=== PATIENT | male | born 1950 | race Caucasian/White ===

== ENCOUNTER 2020-05-07 14:20 | Inpatient (IN) | payer MEDICARE ==
[~2020-05-07] VITALS: Ht 175.3 cm; Wt 87.1 kg
[~2020-05-07 14:20] MED LIST: ETOMIDATE 2 MG/ML 10 ML INJ IV ONE; MIDAZOLAM HCL 2 MG/2 ML VIAL ONE; SUCCINYLCHOLINE CHLORIDE 20 MG/ML 10ML VIAL ONE; VECURONIUM BROMIDE FOR INJ 20 MG VIAL ONE; WATER STERILE 10 ML VIAL ONE
[2020-05-07] MEDS ORDERED: DEXAMETHASONE SOD PHOS 10 MG/1 ML VIAL IV ONE (14:45)
[2020-05-07 15:08] LABS: BASOPHILS % 0.3 % (0.0-1.0); EOSINOPHILS # (AUTO) 0.1 (0.0-0.4); EOSINOPHILS % 1.8 % (0.0-6.0); HEMATOCRIT 28.9 % (38.2-49.6); HEMOGLOBIN 9.8 g/dL (14.0-18.0); LYMPHOCYTES # (AUTO) 0.4 (1.0-3.2); LYMPHOCYTES % 5.4 % (18.0-39.1); MEAN CORPUSCULAR HEMOGLOBIN 31.4 pg (28-32); MEAN CORPUSCULAR HGB CONC 33.9 g/dL (31-35); MEAN CORPUSCULAR VOLUME 92.6 fL (81-99); MONOCYTES # (AUTO) 0.5 (0.2-0.8); MONOCYTES % 7.8 % (4.4-11.3); NEUTROPHILS # (AUTO) 5.6 (2.1-6.9); NEUTROPHILS % 83.7 % (38.7-80.0); PLATELET COUNT 249 x10e3/uL (140-360); RED BLOOD COUNT 3.12 x10e6/uL (4.3-5.7); RED CELL DISTRIBUTION WIDTH 12.7 % (11.7-14.4)
[2020-05-07 15:21] LABS: ALANINE AMINOTRANSFERASE 50 IU/L (0-55); ALBUMIN 2.7 g/dL (3.5-5.0); ALBUMIN/GLOBULIN RATIO 0.7 (0.8-2.0); ALKALINE PHOSPHATASE 77 IU/L (40-150); ANION GAP 16.2 mmol/L (8-16); BLOOD UREA NITROGEN 22 mg/dL (7-26); BUN/CREATININE RATIO 19 (6-25); CARBON DIOXIDE 24 mmol/L (22-29); CHLORIDE 102 mmol/L (98-107); CREATININE, SERUM 1.16 mg/dL (0.72-1.25); EST GLOMERULAR FILTRATION RATE > 60 ML/MIN (60-); GLUCOSE 198 mg/dL (74-118); POTASSIUM 4.2 mmol/L (3.5-5.1); SODIUM 138 mmol/L (136-145)
[2020-05-07] MEDS ORDERED: ONDANSETRON HCL INJ 2MG/ML 2ML 2 MG/ML VIAL IV PRN (16:15)
[2020-05-07] MEDS: AZITHROMYCIN 500MG/NS 250 ML 250 ML IV SCH (16:40)
[2020-05-07] MEDS: CEFTRIAXONE SOD 1 GM/NS 50 ML 50 ML IV SCH (16:40)
[2020-05-07] MEDS: ENOXAPARIN SOD INJ 40 MG/0.4 ML SYR SC SCH (16:40)
[2020-05-07 17:45] VITALS: BP 123/63
[2020-05-07 17:50] VITALS: BP 123/63
[2020-05-07 17:51] VITALS: BP 123/63
[2020-05-07] MEDS: ASCORBIC ACID 500 MG TAB PO SCH (18:41)
[2020-05-07 19:47] VITALS: BP 151/72
[2020-05-07] MEDS ORDERED: TEMAZEPAM 7.5 MG CAP PO PRN (21:00)
[2020-05-07] MEDS ORDERED: ZOLPIDEM TARTRATE 5 MG TAB PO PRN (21:00)
[2020-05-07] MEDS ORDERED: POLYETHYLENE GLYCOL 3350 17 GM PACK PO PRN (21:00)
[2020-05-08] VITALS (7 sets, daily range): BP systolic 111–188; BP diastolic 53–90
[2020-05-08 05:21] LABS: BASOPHILS % 0.2 % (0.0-1.0); EOSINOPHILS # (AUTO) 0.5 (0.0-0.4); EOSINOPHILS % 7.5 % (0.0-6.0); HEMATOCRIT 26.1 % (38.2-49.6); HEMOGLOBIN 8.8 g/dL (14.0-18.0); LYMPHOCYTES # (AUTO) 0.7 (1.0-3.2); LYMPHOCYTES % 10.9 % (18.0-39.1); MEAN CORPUSCULAR HEMOGLOBIN 31.3 pg (28-32); MEAN CORPUSCULAR HGB CONC 33.7 g/dL (31-35); MEAN CORPUSCULAR VOLUME 92.9 fL (81-99); MONOCYTES # (AUTO) 0.4 (0.2-0.8); MONOCYTES % 6.7 % (4.4-11.3); NEUTROPHILS # (AUTO) 4.8 (2.1-6.9); NEUTROPHILS % 73.8 % (38.7-80.0); PLATELET COUNT 231 x10e3/uL (140-360); RED BLOOD COUNT 2.81 x10e6/uL (4.3-5.7); RED CELL DISTRIBUTION WIDTH 12.7 % (11.7-14.4)
[2020-05-08 05:53] LABS: ANION GAP 14.8 mmol/L (8-16); BLOOD UREA NITROGEN 23 mg/dL (7-26); BUN/CREATININE RATIO 23 (6-25); CALCIUM 8.5 mg/dL (8.4-10.2); CARBON DIOXIDE 24 mmol/L (22-29); CHLORIDE 106 mmol/L (98-107); CREATININE, SERUM 1.02 mg/dL (0.72-1.25); EST GLOMERULAR FILTRATION RATE > 60 ML/MIN (60-); GLUCOSE 145 mg/dL (74-118); POTASSIUM 3.8 mmol/L (3.5-5.1); SODIUM 141 mmol/L (136-145)
[2020-05-08 05:55] LABS: CHOL/HDL RATIO 3.7 (3.9-4.7); PHOSPHORUS 3.6 MG/DL (2.3-4.7)
[2020-05-08 06:04] LABS: THYROID STIMULATING HORMONE 1.129 uIU/mL (0.350-4.940)
[2020-05-08] MEDS: DOCUSATE SODIUM 100 MG CAP PO SCH ×2 (10:55→16:46)
[2020-05-08] MEDS: ASCORBIC ACID 500 MG TAB PO SCH ×2 (10:55→16:46)
[2020-05-08] MEDS: FAMOTIDINE 20 MG TAB PO SCH ×2 (10:55→16:46)
[2020-05-08] MEDS: DEXAMETHASONE SOD PHOS 10 MG/1 ML VIAL IV SCH (10:55)
[2020-05-08] MEDS: ZINC SULFATE 220 MG CAP PO SCH (10:55)
[2020-05-08] MEDS ORDERED: DILANTIN100 MG ×2 (14:13)
[2020-05-08] MEDS ORDERED: IRON325 M1 (14:13)
[2020-05-08] MEDS ORDERED: LISINOPRIL10 MG PO (14:13)
[2020-05-08] MEDS ORDERED: OS-CAL 500+D T1 EACH PO (14:13)
[2020-05-08] MEDS ORDERED: OMEPRAZOLE40 MG (14:13)
[2020-05-08] MEDS ORDERED: ATORVASTATIN CA20 MG PO (14:13)
[2020-05-08] MEDS ORDERED: POTASSIUM ACETAT1 GM (14:13)
[2020-05-08] MEDS ORDERED: ASPIRIN CHEW81 MG PO (14:13)
[2020-05-08] MEDS ORDERED: FUROSEMIDE40 MG PO (14:13)
[2020-05-08] MEDS ORDERED: CITALOPRAM HBR20 MG PO (14:13)
[2020-05-08] MEDS ORDERED: DEXTROSE 5%/0.45% SOD CHL 1,000 ML IV SCH (16:15)
[2020-05-08] MEDS: CEFTRIAXONE SOD 1 GM/NS 50 ML 50 ML IV SCH (16:46)
[2020-05-08] MEDS: AZITHROMYCIN 500MG/NS 250 ML 250 ML IV SCH (16:46)
[2020-05-08] MEDS: ENOXAPARIN SOD INJ 40 MG/0.4 ML SYR SC SCH (16:46)
[2020-05-08] MEDS: ACETAMINOPHEN 325 MG TAB PO PRN ×2 (17:04→23:49)
[2020-05-08] MEDS ORDERED: REMDESIVIR 200MG/NS 100ML 200 MG in SODIUM CHLORIDE 0.9% 100 ML 100 ML IV ONE (18:00)
[2020-05-08] MEDS: HYDRALAZINE HCL 20 MG/ML VIAL IV PRN (21:44)
[2020-05-09] VITALS (13 sets, daily range): BP systolic 96–182; BP diastolic 43–89
[2020-05-09 01:38] LABS: ABG HCO3 25 mmol/L (22-26); ABG PCO2 34 mmHg (35-45); ABG PH 7.47 (7.35-7.45); ABG PO2 55 mmHg (80-105); ABG TCO2 26
[2020-05-09] MEDS: DEXMEDETOMIDINE HCL 200 MCG in SODIUM CHLORIDE 0.9% 50ML 48 ML IV PRN ×3 (02:45→14:38)
[2020-05-09] MEDS ORDERED: DEXMEDETOMIDINE 200MCG/NS 50ML 50 ML IV ONE ×2 (02:47→07:03)
[2020-05-09] MEDS ORDERED: FUROSEMIDE INJ 10 MG/ML 2 ML VIAL IV ONE (03:30)
[2020-05-09 05:45] LABS: BASOPHILS % 0.2 % (0.0-1.0); EOSINOPHILS % 0.1 % (0.0-6.0); HEMATOCRIT 27.7 % (38.2-49.6); HEMOGLOBIN 9.3 g/dL (14.0-18.0); LYMPHOCYTES # (AUTO) 0.5 (1.0-3.2); LYMPHOCYTES % 3.9 % (18.0-39.1); MEAN CORPUSCULAR HEMOGLOBIN 31.5 pg (28-32); MEAN CORPUSCULAR HGB CONC 33.6 g/dL (31-35); MEAN CORPUSCULAR VOLUME 93.9 fL (81-99); MONOCYTES # (AUTO) 0.5 (0.2-0.8); MONOCYTES % 4.2 % (4.4-11.3); NEUTROPHILS # (AUTO) 11.5 (2.1-6.9); PLATELET COUNT 253 x10e3/uL (140-360); RED BLOOD COUNT 2.95 x10e6/uL (4.3-5.7); RED CELL DISTRIBUTION WIDTH 12.4 % (11.7-14.4)
[2020-05-09 06:26] LABS: ALANINE AMINOTRANSFERASE 50 IU/L (0-55); ALBUMIN 2.2 g/dL (3.5-5.0); ALBUMIN/GLOBULIN RATIO 0.6 (0.8-2.0); ALKALINE PHOSPHATASE 95 IU/L (40-150); BLOOD UREA NITROGEN 17 mg/dL (7-26); BUN/CREATININE RATIO 19 (6-25); CALCIUM 7.9 mg/dL (8.4-10.2); CARBON DIOXIDE 23 mmol/L (22-29); CHLORIDE 107 mmol/L (98-107); CREATININE, SERUM 0.88 mg/dL (0.72-1.25); EST GLOMERULAR FILTRATION RATE > 60 ML/MIN (60-); GLUCOSE 129 mg/dL (74-118); SODIUM 141 mmol/L (136-145)
[2020-05-09] MEDS: FAMOTIDINE 20 MG TAB PO SCH ×2 (07:30→16:30)
[2020-05-09] MEDS: DEXAMETHASONE SOD PHOS 10 MG/1 ML VIAL IV SCH (08:01)
[2020-05-09] MEDS: ASPIRIN 81 MG CHEW TAB PO SCH (08:08)
[2020-05-09] MEDS: ZINC SULFATE 220 MG CAP PO SCH (08:09)
[2020-05-09] MEDS: PHENYTOIN SODIUM EXT REL 100 MG CAP PO SCH (08:09)
[2020-05-09] MEDS: FERROUS SULFATE 325 MG TAB PO SCH ×2 (08:09→16:31)
[2020-05-09] MEDS: ASCORBIC ACID 500 MG TAB PO SCH ×2 (08:09→16:31)
[2020-05-09] MEDS: OYST-CAL-D 500MG TABLET PO SCH ×2 (08:09→16:31)
[2020-05-09] MEDS: DOCUSATE SODIUM 100 MG CAP PO SCH ×2 (08:09→16:30)
[2020-05-09] MEDS ORDERED: CITALOPRAM HYDROBROMIDE 20 MG TAB PO SCH (09:00)
[2020-05-09] MEDS ORDERED: FUROSEMIDE 40 MG TAB PO SCH (09:00)
[2020-05-09] MEDS ORDERED: LISINOPRIL 10 MG TAB PO SCH (09:00)
[2020-05-09] MEDS ORDERED: PANTOPRAZOLE SOD 40 MG TABEC PO SCH (09:00)
[2020-05-09] MEDS ORDERED: AMLODIPINE BESYLATE 10 MG TAB PO SCH (09:00)
[2020-05-09 09:02] LABS: LYMPHOCYTES % (MANUAL) 6 % (19-48); MONOCYTES % (MANUAL) 3 % (3.4-9.0); NEUTROPHILS % (MANUAL) 91 % (40-74); PLATELET ESTIMATE ADEQUATE; PLATELET MORPHOLOGY COMMENT NORMAL; RBC MORPHOLOGY COMMENT NORMAL
[2020-05-09] MEDS: REMDESIVIR 100MG/NS 100ML 100 MG IV SCH (13:53)
[2020-05-09] MEDS: AZITHROMYCIN 500MG/NS 250 ML 250 ML IV SCH (16:30)
[2020-05-09] MEDS: CEFTRIAXONE SOD 1 GM/NS 50 ML 50 ML IV SCH (16:30)
[2020-05-09] MEDS: ENOXAPARIN SOD INJ 40 MG/0.4 ML SYR SC SCH (16:31)
[2020-05-09 18:33] LABS: ABG HCO3 25 mmol/L (22-26); ABG PCO2 34 mmHg (35-45); ABG PH 7.47 (7.35-7.45); ABG PO2 55 mmHg (80-105); ABG TCO2 26
[2020-05-09] MEDS ORDERED: MIDAZOLAM HCL 5MG/ML 10ML VIAL 100 ML IV ONE (19:19)
[2020-05-09] MEDS ORDERED: FENTANYL 2000MCG/NS 250 250 ML ONE (19:19)
[2020-05-09] MEDS ORDERED: HEPARIN SOD/SOD CHLORIDE 1,000 ML ONE (19:49)
[2020-05-09] MEDS ORDERED: HEPARIN SOD/SOD CHLORIDE 1,000 ML IV PRN (20:00)
[2020-05-09] MEDS ORDERED: ROCURONIUM BROMIDE 1,250 MG in SODIUM CHLORIDE 0.9% 250ML 125 ML IV PRN (20:00)
[2020-05-09] MEDS ORDERED: PHENYTOIN SODIUM EXT REL 100 MG CAP PO SCH (21:00)
[2020-05-09] MEDS ORDERED: ATORVASTATIN 20 MG TAB PO SCH (21:00)
[2020-05-09] MEDS ORDERED: NOREPINEPHRINE INJ 4MG/4ML 8 MG in DEXTROSE 5% 250ML 250 ML IV PRN (22:30)
[2020-05-09] MEDS ORDERED: SODIUM CHLORIDE 0.9% 500ML 500 ML IV ONE (22:30)
[2020-05-09] MEDS ORDERED: SODIUM CHLORIDE 0.9% 500ML 500 ML ONE (22:31)
[2020-05-09] MEDS ORDERED: NOREPINEPHRINE 8 MG/D5W 250 ML 250 ML ONE (22:31)
[2020-05-10] VITALS (24 sets, daily range): BP systolic 87–139; BP diastolic 41–62
[2020-05-10 03:02] LABS: BASOPHILS % 0.2 % (0.0-1.0); EOSINOPHILS # (AUTO) 0.3 (0.0-0.4); EOSINOPHILS % 2.5 % (0.0-6.0); HEMOGLOBIN 8.6 g/dL (14.0-18.0); LYMPHOCYTES # (AUTO) 1.1 (1.0-3.2); LYMPHOCYTES % 8.9 % (18.0-39.1); MEAN CORPUSCULAR HEMOGLOBIN 31.6 pg (28-32); MEAN CORPUSCULAR HGB CONC 33.1 g/dL (31-35); MEAN CORPUSCULAR VOLUME 95.6 fL (81-99); MONOCYTES # (AUTO) 0.6 (0.2-0.8); NEUTROPHILS # (AUTO) 10.3 (2.1-6.9); NEUTROPHILS % 82.8 % (38.7-80.0); PLATELET COUNT 222 x10e3/uL (140-360); RED BLOOD COUNT 2.72 x10e6/uL (4.3-5.7)
[2020-05-10 03:13] LABS: INR 1.3; PROTHROMBIN TIME 16.8 seconds (11.9-14.5)
[2020-05-10 03:14] LABS: PARTIAL THROMBOPLASTIN TIME 34.3 seconds (23.8-35.5)
[2020-05-10 03:24] LABS: ALBUMIN 1.9 g/dL (3.5-5.0); ALBUMIN/GLOBULIN RATIO 0.5 (0.8-2.0); ANION GAP 14.9 mmol/L (8-16); CALCIUM 7.5 mg/dL (8.4-10.2); CREATININE, SERUM 1.32 mg/dL (0.72-1.25); POTASSIUM 3.9 mmol/L (3.5-5.1)
[2020-05-10] MEDS: DOCUSATE SODIUM 100 MG CAP PO SCH ×2 (08:36→17:39)
[2020-05-10] MEDS: ASCORBIC ACID 500 MG TAB PO SCH ×2 (08:36→17:39)
[2020-05-10] MEDS: ASPIRIN 81 MG CHEW TAB PO SCH (08:36)
[2020-05-10] MEDS: ZINC SULFATE 220 MG CAP PO SCH (08:36)
[2020-05-10] MEDS: DEXAMETHASONE SOD PHOS INJ 4 MG/ML VIAL IV SCH (08:36)
[2020-05-10] MEDS: OYST-CAL-D 500MG TABLET PO SCH ×2 (08:36→17:39)
[2020-05-10] MEDS: PHENYTOIN SODIUM EXT REL 100 MG CAP PO SCH (08:37)
[2020-05-10] MEDS: FAMOTIDINE 20 MG/2 ML VIAL IV SCH ×2 (08:44→17:39)
[2020-05-10] MEDS ORDERED: VECURONIUM BROMIDE FOR INJ 20 MG VIAL IV ONE (09:00)
[2020-05-10] MEDS ORDERED: LACTATED RINGER'S 1,000 ML INJ ONE (10:30)
[2020-05-10 12:16] LABS: ABG HCO3 23 mmol/L (22-26); ABG PCO2 41 mmHg (35-45); ABG PH 7.36 (7.35-7.45); ABG PO2 123 mmHg (80-105); ABG TCO2 25
[2020-05-10] MEDS: PHENYTOIN 100 MG/4 ML CUP NG SCH ×2 (12:18→20:07)
[2020-05-10] MEDS: FENTANYL 2000MCG/NS 250 250 ML IV PRN (13:01)
[2020-05-10] MEDS: MIDAZOLAM HCL 5MG/ML 10ML VIAL 100 ML IV PRN ×2 (13:02→19:00)
[2020-05-10] MEDS: ALBUMIN 25% 25GM 100ML 0.25 GM/ML BTL IV SCH ×2 (13:12→21:28)
[2020-05-10] MEDS ORDERED: FUROSEMIDE INJ 10 MG/ML 4 ML VIAL IV ONE (13:30)
[2020-05-10] MEDS: REMDESIVIR 100MG/NS 100ML 100 MG IV SCH (14:26)
[2020-05-10 15:46] LABS: ABG HCO3 24 mmol/L (22-26); ABG PCO2 44 mmHg (35-45); ABG PH 7.34 (7.35-7.45); ABG PO2 173 mmHg (80-105); ABG TCO2 25
[2020-05-10 17:59] LABS: ALBUMIN 2.2 g/dL (3.5-5.0); ALBUMIN/GLOBULIN RATIO 0.6 (0.8-2.0); ANION GAP 15.4 mmol/L (8-16); CALCIUM 7.3 mg/dL (8.4-10.2); CREATININE, SERUM 2.33 mg/dL (0.72-1.25); POTASSIUM 4.4 mmol/L (3.5-5.1)
[2020-05-10] MEDS: ENOXAPARIN SOD INJ 40 MG/0.4 ML SYR SC SCH (20:07)
[2020-05-10] MEDS ORDERED: CEFTRIAXONE SOD 1 GM/NS 50 ML 50 ML IV SCH (21:00)
[2020-05-11] VITALS (25 sets, daily range): BP systolic 112–161; BP diastolic 40–64
[2020-05-11] MEDS: MIDAZOLAM HCL 5MG/ML 10ML VIAL 100 ML IV PRN ×2 (01:30→21:03)
[2020-05-11] MEDS: FENTANYL 2000MCG/NS 250 250 ML IV PRN ×3 (02:00→21:41)
[2020-05-11 04:09] LABS: BASOPHILS % 0.1 % (0.0-1.0); EOSINOPHILS # (AUTO) 0.4 (0.0-0.4); EOSINOPHILS % 4.3 % (0.0-6.0); LYMPHOCYTES # (AUTO) 1.2 (1.0-3.2); LYMPHOCYTES % 14.1 % (18.0-39.1); MEAN CORPUSCULAR HEMOGLOBIN 30.8 pg (28-32); MEAN CORPUSCULAR HGB CONC 31.8 g/dL (31-35); MEAN CORPUSCULAR VOLUME 96.9 fL (81-99); MONOCYTES # (AUTO) 0.4 (0.2-0.8); MONOCYTES % 4.5 % (4.4-11.3); NEUTROPHILS # (AUTO) 6.3 (2.1-6.9); NEUTROPHILS % 76.5 % (38.7-80.0); PLATELET COUNT 157 x10e3/uL (140-360); RED BLOOD COUNT 2.27 x10e6/uL (4.3-5.7); RED CELL DISTRIBUTION WIDTH 13.2 % (11.7-14.4)
[2020-05-11 04:29] LABS: ALBUMIN 2.3 g/dL (3.5-5.0); ALBUMIN/GLOBULIN RATIO 0.7 (0.8-2.0); ANION GAP 15.9 mmol/L (8-16); CALCIUM 7.4 mg/dL (8.4-10.2); CREATININE, SERUM 3.03 mg/dL (0.72-1.25); POTASSIUM 3.9 mmol/L (3.5-5.1)
[2020-05-11] MEDS: ALBUMIN 25% 25GM 100ML 0.25 GM/ML BTL IV SCH (06:00)
[2020-05-11] MEDS: DEXAMETHASONE SOD PHOS INJ 4 MG/ML VIAL IV SCH (08:43)
[2020-05-11] MEDS: DOCUSATE SODIUM 100 MG CAP PO SCH ×2 (08:43→17:23)
[2020-05-11] MEDS: ZINC SULFATE 220 MG CAP PO SCH (08:43)
[2020-05-11] MEDS: PHENYTOIN 100 MG/4 ML CUP NG SCH ×2 (08:43→21:02)
[2020-05-11] MEDS: FAMOTIDINE 20 MG/2 ML VIAL IV SCH ×2 (08:43→17:23)
[2020-05-11] MEDS: ASCORBIC ACID 500 MG TAB PO SCH ×2 (08:43→17:23)
[2020-05-11] MEDS: OYST-CAL-D 500MG TABLET PO SCH ×2 (08:43→17:23)
[2020-05-11] MEDS: ASPIRIN 81 MG CHEW TAB PO SCH (08:43)
[2020-05-11] MEDS: ENOXAPARIN SOD INJ 40 MG/0.4 ML SYR SC SCH ×2 (08:44→21:02)
[2020-05-11] MEDS ORDERED: FUROSEMIDE INJ 10 MG/ML 4 ML VIAL IV ONE (11:00)
[2020-05-11] MEDS: REMDESIVIR 100MG/NS 100ML 100 MG IV SCH (14:23)
[2020-05-11] MEDS ORDERED: CEFTRIAXONE SOD 1 GM/NS 50 ML 50 ML IV SCH (14:25)
[2020-05-11] MEDS ORDERED: LACTATED RINGER'S 1,000 ML INJ ONE (14:35)
[2020-05-11] MEDS: FUROSEMIDE INJ 100 MG in SODIUM CHLORIDE 0.9% 100 ML 90 ML IV SCH (17:12)
[2020-05-11 18:23] LABS: ABG HCO3 20 mmol/L (22-26); ABG PCO2 39 mmHg (35-45); ABG PH 7.33 (7.35-7.45); ABG PO2 176 mmHg (80-105); ABG TCO2 21
[2020-05-12] VITALS (16 sets, daily range): BP systolic 101–156; BP diastolic 33–58
[2020-05-12] MEDS: MIDAZOLAM HCL 5MG/ML 10ML VIAL 100 ML IV PRN ×4 (02:00→21:15)
[2020-05-12] MEDS: CEFTRIAXONE SOD 1 GM/NS 50 ML 50 ML IV SCH (02:11)
[2020-05-12] MEDS: FENTANYL 2000MCG/NS 250 250 ML IV PRN ×3 (02:30→21:15)
[2020-05-12 06:24] LABS: BASOPHILS % 0.2 % (0.0-1.0); EOSINOPHILS # (AUTO) 0.2 (0.0-0.4); EOSINOPHILS % 2.9 % (0.0-6.0); HEMATOCRIT 23.2 % (38.2-49.6); HEMOGLOBIN 7.6 g/dL (14.0-18.0); LYMPHOCYTES # (AUTO) 1.2 (1.0-3.2); LYMPHOCYTES % 14.8 % (18.0-39.1); MEAN CORPUSCULAR HEMOGLOBIN 31.3 pg (28-32); MEAN CORPUSCULAR HGB CONC 32.8 g/dL (31-35); MEAN CORPUSCULAR VOLUME 95.5 fL (81-99); MONOCYTES # (AUTO) 0.5 (0.2-0.8); MONOCYTES % 6.2 % (4.4-11.3); PLATELET COUNT 207 x10e3/uL (140-360); RED BLOOD COUNT 2.43 x10e6/uL (4.3-5.7); RED CELL DISTRIBUTION WIDTH 13.2 % (11.7-14.4)
[2020-05-12 06:51] LABS: ALBUMIN 2.2 g/dL (3.5-5.0); ALBUMIN/GLOBULIN RATIO 0.7 (0.8-2.0); ANION GAP 14.9 mmol/L (8-16); CALCIUM 7.2 mg/dL (8.4-10.2); CREATININE, SERUM 3.91 mg/dL (0.72-1.25); POTASSIUM 3.9 mmol/L (3.5-5.1)
[2020-05-12] MEDS: FAMOTIDINE 20 MG/2 ML VIAL IV SCH ×2 (08:48→16:58)
[2020-05-12] MEDS: DEXAMETHASONE SOD PHOS INJ 4 MG/ML VIAL IV SCH (08:48)
[2020-05-12] MEDS: PHENYTOIN 100 MG/4 ML CUP NG SCH ×2 (08:48→20:30)
[2020-05-12] MEDS: DOCUSATE SODIUM LIQD 100 MG/10 ML UDC NG SCH ×2 (09:06→16:58)
[2020-05-12] MEDS: ZINC SULFATE 220 MG CAP PO SCH (09:06)
[2020-05-12] MEDS: ASCORBIC ACID 500 MG TAB PO SCH ×2 (09:06→16:58)
[2020-05-12] MEDS: OYST-CAL-D 500MG TABLET PO SCH (09:06)
[2020-05-12] MEDS: ASPIRIN 81 MG CHEW TAB PO SCH (09:06)
[2020-05-12] MEDS: FUROSEMIDE INJ 100 MG in SODIUM CHLORIDE 0.9% 100 ML 90 ML IV SCH (11:47)
[2020-05-12 12:18] LABS: ABG HCO3 20 mmol/L (22-26); ABG PCO2 35 mmHg (35-45); ABG PH 7.37 (7.35-7.45); ABG PO2 87 mmHg (80-105); ABG TCO2 21
[2020-05-12] MEDS ORDERED: HEPARIN SOD (PORCINE) 1000 UNIT/ML SDV ONE (15:55)
[2020-05-12] MEDS ORDERED: SODIUM CHLORIDE 0.9% 1000ML 2,000 ML ONE (15:56)
[2020-05-12] MEDS ORDERED: ATROPINE SULFATE 1 MG/ML VIAL IV PRN (16:15)
[2020-05-12] MEDS ORDERED: MANNITOL 25% 12.5GM/50ML 100 ML ONE (16:38)
[2020-05-12] MEDS: CALCIUM CARBONATE 500 MG CHEWABLE TABS PO SCH ×2 (16:58→20:30)
[2020-05-12] MEDS: EPOETIN ALFA-EPBX 10,000 UNIT/ML VIAL SC SCH (16:58)
[2020-05-13] VITALS (16 sets, daily range): BP systolic 97–198; BP diastolic 32–61
[2020-05-13] MEDS: CEFTRIAXONE SOD 1 GM/NS 50 ML 50 ML IV SCH (02:13)
[2020-05-13] MEDS: FUROSEMIDE INJ 100 MG in SODIUM CHLORIDE 0.9% 100 ML 90 ML IV SCH ×2 (02:30→11:11)
[2020-05-13 05:01] LABS: BASOPHILS % 0.4 % (0.0-1.0); EOSINOPHILS # (AUTO) 0.2 (0.0-0.4); EOSINOPHILS % 2.4 % (0.0-6.0); HEMATOCRIT 28.5 % (38.2-49.6); HEMOGLOBIN 9.5 g/dL (14.0-18.0); LYMPHOCYTES # (AUTO) 1.5 (1.0-3.2); LYMPHOCYTES % 16.4 % (18.0-39.1); MEAN CORPUSCULAR HEMOGLOBIN 31.8 pg (28-32); MEAN CORPUSCULAR HGB CONC 33.3 g/dL (31-35); MEAN CORPUSCULAR VOLUME 95.3 fL (81-99); MONOCYTES # (AUTO) 0.9 (0.2-0.8); MONOCYTES % 9.2 % (4.4-11.3); NEUTROPHILS # (AUTO) 6.4 (2.1-6.9); NEUTROPHILS % 69.2 % (38.7-80.0); PLATELET COUNT 296 x10e3/uL (140-360); RED BLOOD COUNT 2.99 x10e6/uL (4.3-5.7); RED CELL DISTRIBUTION WIDTH 13.2 % (11.7-14.4)
[2020-05-13 05:27] LABS: ALBUMIN 2.3 g/dL (3.5-5.0); ALBUMIN/GLOBULIN RATIO 0.5 (0.8-2.0); ANION GAP 17.6 mmol/L (8-16); CALCIUM 7.5 mg/dL (8.4-10.2); CREATININE, SERUM 3.51 mg/dL (0.72-1.25); POTASSIUM 3.6 mmol/L (3.5-5.1)
[2020-05-13] MEDS: ENOXAPARIN SOD INJ 40 MG/0.4 ML SYR SC SCH (05:51)
[2020-05-13] MEDS: MIDAZOLAM HCL 5MG/ML 10ML VIAL 100 ML IV PRN ×2 (06:13→17:47)
[2020-05-13] MEDS: FENTANYL 2000MCG/NS 250 250 ML IV PRN ×2 (08:05→20:52)
[2020-05-13] MEDS: ASPIRIN 81 MG CHEW TAB PO SCH (08:09)
[2020-05-13] MEDS: ASCORBIC ACID 500 MG TAB PO SCH ×2 (08:09→16:32)
[2020-05-13] MEDS: DOCUSATE SODIUM LIQD 100 MG/10 ML UDC NG SCH ×2 (08:09→16:32)
[2020-05-13] MEDS: FAMOTIDINE 20 MG/2 ML VIAL IV SCH ×2 (08:09→16:32)
[2020-05-13] MEDS: CALCIUM CARBONATE 500 MG CHEWABLE TABS PO SCH ×3 (08:09→20:51)
[2020-05-13] MEDS: ZINC SULFATE 220 MG CAP PO SCH (08:09)
[2020-05-13] MEDS: DEXAMETHASONE SOD PHOS INJ 4 MG/ML VIAL IV SCH (08:09)
[2020-05-13] MEDS: PHENYTOIN 100 MG/4 ML CUP NG SCH ×2 (09:49→20:51)
[2020-05-13 10:08] LABS: ABG HCO3 23 mmol/L (22-26); ABG PCO2 38 mmHg (35-45); ABG PO2 86 mmHg (80-105); ABG TCO2 24
[2020-05-13] MEDS ORDERED: ATROPINE SULFATE 0.1 MG/ML 10ML SYR IV PRN (11:15)
[2020-05-13] MEDS ORDERED: HEPARIN SOD (PORCINE) 1000 UNIT/ML SDV IV PRN (16:15)
[2020-05-13] MEDS ORDERED: MANNITOL 25% 12.5GM/50 ML VIAL IV PRN (16:15)
[2020-05-13] MEDS ORDERED: SODIUM CHLORIDE 0.9% 1000ML 2,000 ML IV PRN (16:15)
[2020-05-13 16:36] LABS: ABG HCO3 24 mmol/L (22-26); ABG PCO2 39 mmHg (35-45); ABG PH 7.39 (7.35-7.45); ABG PO2 79 mmHg (80-105); ABG TCO2 25
[2020-05-13] MEDS ORDERED: ALBUMIN 25% 12.5GM 50ML 100 ML IV ONE (17:49)
[2020-05-13] MEDS ORDERED: ROCURONIUM BROMIDE 1,250 MG in SODIUM CHLORIDE 0.9% 250ML 125 ML IV SCH (21:30)
[2020-05-13] MEDS: HYDRALAZINE HCL 20 MG/ML VIAL IV PRN (22:50)
[2020-05-14] VITALS (16 sets, daily range): BP systolic 92–161; BP diastolic 36–72
[2020-05-14] MEDS: MIDAZOLAM HCL 5MG/ML 10ML VIAL 100 ML IV PRN ×3 (00:37→18:24)
[2020-05-14] MEDS: CEFTRIAXONE SOD 1 GM/NS 50 ML 50 ML IV SCH (02:48)
[2020-05-14] MEDS: ENOXAPARIN SOD INJ 40 MG/0.4 ML SYR SC SCH (05:29)
[2020-05-14 05:44] LABS: BASOPHILS % 0.5 % (0.0-1.0); EOSINOPHILS # (AUTO) 0.2 (0.0-0.4); EOSINOPHILS % 2.3 % (0.0-6.0); HEMATOCRIT 25.1 % (38.2-49.6); HEMOGLOBIN 8.2 g/dL (14.0-18.0); LYMPHOCYTES % 11.7 % (18.0-39.1); MEAN CORPUSCULAR HEMOGLOBIN 31.5 pg (28-32); MEAN CORPUSCULAR HGB CONC 32.7 g/dL (31-35); MEAN CORPUSCULAR VOLUME 96.5 fL (81-99); MONOCYTES # (AUTO) 0.8 (0.2-0.8); MONOCYTES % 9.3 % (4.4-11.3); NEUTROPHILS # (AUTO) 6.3 (2.1-6.9); NEUTROPHILS % 72.6 % (38.7-80.0); PLATELET COUNT 259 x10e3/uL (140-360); RED CELL DISTRIBUTION WIDTH 13.2 % (11.7-14.4)
[2020-05-14] MEDS ORDERED: FUROSEMIDE INJ 10 MG/ML 10 ML VIAL ONE (06:00)
[2020-05-14] MEDS ORDERED: SODIUM CHLORIDE 0.9% 100 ML ONE (06:01)
[2020-05-14 06:30] LABS: ALBUMIN/GLOBULIN RATIO 0.5 (0.8-2.0); ANION GAP 14.7 mmol/L (8-16); CALCIUM 7.4 mg/dL (8.4-10.2); CREATININE, SERUM 2.66 mg/dL (0.72-1.25); POTASSIUM 3.7 mmol/L (3.5-5.1)
[2020-05-14] MEDS: ZINC SULFATE 220 MG CAP PO SCH (07:57)
[2020-05-14] MEDS: ASCORBIC ACID 500 MG TAB PO SCH ×2 (07:57→16:11)
[2020-05-14] MEDS: DEXAMETHASONE SOD PHOS INJ 4 MG/ML VIAL IV SCH (07:57)
[2020-05-14] MEDS: DOCUSATE SODIUM LIQD 100 MG/10 ML UDC NG SCH ×2 (07:57→16:11)
[2020-05-14] MEDS: ASPIRIN 81 MG CHEW TAB PO SCH (07:57)
[2020-05-14] MEDS: FAMOTIDINE 20 MG/2 ML VIAL IV SCH ×2 (07:57→16:11)
[2020-05-14] MEDS: CALCIUM CARBONATE 500 MG CHEWABLE TABS PO SCH ×3 (07:57→21:49)
[2020-05-14] MEDS: PHENYTOIN 100 MG/4 ML CUP NG SCH ×2 (08:03→21:49)
[2020-05-14 08:13] LABS: ABG HCO3 26 mmol/L (22-26); ABG PCO2 38 mmHg (35-45); ABG PH 7.44 (7.35-7.45); ABG PO2 86 mmHg (80-105)
[2020-05-14 08:14] LABS: ABG TCO2 27
[2020-05-14] MEDS ORDERED: NOREPINEPHRINE INJ 4MG/4ML 8 MG in DEXTROSE 5% 250ML 250 ML IV PRN (09:15)
[2020-05-14] MEDS ORDERED: NOREPINEPHRINE 8 MG/D5W 250 ML 250 ML ONE (09:15)
[2020-05-14] MEDS ORDERED: NOREPINEPHRINE 8 MG/D5W 250 ML 250 ML IV PRN (09:15)
[2020-05-14] MEDS ORDERED: ALBUTEROL SULF 0.083% NEB SOLN 3 ML NEB NEB STA (10:26)
[2020-05-14 17:57] LABS: ABG HCO3 27 mmol/L (22-26); ABG PCO2 44 mmHg (35-45); ABG PO2 113 mmHg (80-105); ABG TCO2 28
[2020-05-14] MEDS: FENTANYL 2000MCG/NS 250 250 ML IV PRN ×2 (18:25→23:29)
[2020-05-14] MEDS: FUROSEMIDE INJ 100 MG in SODIUM CHLORIDE 0.9% 100 ML 90 ML IV SCH (20:20)
[2020-05-14] MEDS: ACETAMINOPHEN 325 MG TAB PO PRN (21:50)
[2020-05-15] VITALS (57 sets, daily range): BP systolic 85–241; BP diastolic 31–79
[2020-05-15] MEDS: ACETAMINOPHEN 325 MG TAB PO PRN (03:35)
[2020-05-15] MEDS: CEFTRIAXONE SOD 1 GM/NS 50 ML 50 ML IV SCH (03:36)
[2020-05-15] MEDS ORDERED: FUROSEMIDE INJ 10 MG/ML 10 ML VIAL ONE ×2 (04:58→14:08)
[2020-05-15] MEDS ORDERED: SODIUM CHLORIDE 0.9% 100 ML ONE ×2 (04:59→14:09)
[2020-05-15] MEDS: ENOXAPARIN SOD INJ 40 MG/0.4 ML SYR SC SCH (05:41)
[2020-05-15 06:29] LABS: BASOPHILS % 0.3 % (0.0-1.0); EOSINOPHILS # (AUTO) 0.3 (0.0-0.4); EOSINOPHILS % 3.4 % (0.0-6.0); HEMATOCRIT 25.9 % (38.2-49.6); HEMOGLOBIN 8.6 g/dL (14.0-18.0); LYMPHOCYTES # (AUTO) 1.1 (1.0-3.2); LYMPHOCYTES % 11.7 % (18.0-39.1); MEAN CORPUSCULAR HEMOGLOBIN 31.9 pg (28-32); MEAN CORPUSCULAR HGB CONC 33.2 g/dL (31-35); MEAN CORPUSCULAR VOLUME 95.9 fL (81-99); MONOCYTES # (AUTO) 0.6 (0.2-0.8); NEUTROPHILS # (AUTO) 6.5 (2.1-6.9); NEUTROPHILS % 72.7 % (38.7-80.0); PLATELET COUNT 333 x10e3/uL (140-360); RED CELL DISTRIBUTION WIDTH 13.3 % (11.7-14.4)
[2020-05-15 07:03] LABS: ALBUMIN 2.2 g/dL (3.5-5.0); ALBUMIN/GLOBULIN RATIO 0.5 (0.8-2.0); ANION GAP 17.5 mmol/L (8-16); CALCIUM 7.7 mg/dL (8.4-10.2); CREATININE, SERUM 2.51 mg/dL (0.72-1.25); POTASSIUM 3.5 mmol/L (3.5-5.1)
[2020-05-15] MEDS: FAMOTIDINE 20 MG/2 ML VIAL IV SCH ×2 (07:59→16:07)
[2020-05-15] MEDS: ASPIRIN 81 MG CHEW TAB PO SCH (07:59)
[2020-05-15] MEDS: CALCIUM CARBONATE 500 MG CHEWABLE TABS PO SCH ×3 (07:59→21:24)
[2020-05-15] MEDS: ASCORBIC ACID 500 MG TAB PO SCH ×2 (07:59→16:07)
[2020-05-15] MEDS: ZINC SULFATE 220 MG CAP PO SCH (07:59)
[2020-05-15] MEDS: DOCUSATE SODIUM LIQD 100 MG/10 ML UDC NG SCH ×2 (07:59→16:07)
[2020-05-15] MEDS: PHENYTOIN 100 MG/4 ML CUP NG SCH ×2 (08:01→21:24)
[2020-05-15] MEDS: FENTANYL 2000MCG/NS 250 250 ML IV PRN ×3 (08:15→22:22)
[2020-05-15] MEDS: MIDAZOLAM HCL 5MG/ML 10ML VIAL 100 ML IV PRN ×2 (08:15→14:30)
[2020-05-15] MEDS ORDERED: MEROPENEM 500MG/ NS 50ML 50 ML IV SCH (09:00)
[2020-05-15] MEDS ORDERED: VANCOMYCIN 1GM/NS 250 ML 250 ML IV ONE (09:00)
[2020-05-15] MEDS: DEXAMETHASONE SOD PHOS INJ 4 MG/ML VIAL IV SCH ×2 (09:00→16:07)
[2020-05-15] MEDS ORDERED: SODIUM CHLORIDE 0.9% 250ML 250 ML ONE (09:23)
[2020-05-15] MEDS: HYDRALAZINE HCL 20 MG/ML VIAL IV PRN (12:41)
[2020-05-15 13:39] LABS: ABG HCO3 26 mmol/L (22-26); ABG PCO2 44 mmHg (35-45); ABG PH 7.38 (7.35-7.45); ABG PO2 58 mmHg (80-105)
[2020-05-15 13:40] LABS: ABG TCO2 27
[2020-05-15] MEDS ORDERED: VECURONIUM BROMIDE FOR INJ 20 MG VIAL IV ONE (14:00)
[2020-05-15] MEDS: ROCURONIUM BROMIDE 1,250 MG in SODIUM CHLORIDE 0.9% 250ML 125 ML IV SCH (14:00)
[2020-05-15] MEDS: FUROSEMIDE INJ 100 MG in SODIUM CHLORIDE 0.9% 100 ML 90 ML IV SCH (14:15)
[2020-05-15] MEDS ORDERED: LABETALOL HCL 20 ML ONE (14:16)
[2020-05-15] MEDS ORDERED: POTASSIUM CHLORIDE 20MEQ/15ML UDC NG ONE (15:30)
[2020-05-15] MEDS: EPOETIN ALFA-EPBX 10,000 UNIT/ML VIAL SC SCH (15:50)
[2020-05-15] MEDS: KCL 20 MEQ PACKET/ ORAL SOLN PO SCH (16:07)
[2020-05-15 18:36] LABS: ABG PH 7.23 (7.35-7.45)
[2020-05-15 18:37] LABS: ABG HCO3 28 mmol/L (22-26); ABG PCO2 66 mmHg (35-45); ABG PO2 89 mmHg (80-105); ABG TCO2 30
[2020-05-16] VITALS (15 sets, daily range): BP systolic 93–118; BP diastolic 33–58
[2020-05-16] MEDS: FUROSEMIDE INJ 100 MG in SODIUM CHLORIDE 0.9% 100 ML 90 ML IV SCH ×4 (00:19→21:31)
[2020-05-16] MEDS: MEROPENEM 500MG/ NS 50ML 50 ML IV SCH ×2 (04:23→14:58)
[2020-05-16 04:58] LABS: BASOPHILS % 0.3 % (0.0-1.0); EOSINOPHILS # (AUTO) 0.2 (0.0-0.4); EOSINOPHILS % 2.9 % (0.0-6.0); HEMATOCRIT 22.4 % (38.2-49.6); HEMOGLOBIN 7.1 g/dL (14.0-18.0); LYMPHOCYTES # (AUTO) 1.1 (1.0-3.2); LYMPHOCYTES % 13.5 % (18.0-39.1); MEAN CORPUSCULAR HEMOGLOBIN 31.3 pg (28-32); MEAN CORPUSCULAR HGB CONC 31.7 g/dL (31-35); MEAN CORPUSCULAR VOLUME 98.7 fL (81-99); MONOCYTES # (AUTO) 0.7 (0.2-0.8); MONOCYTES % 8.7 % (4.4-11.3); NEUTROPHILS # (AUTO) 5.7 (2.1-6.9); NEUTROPHILS % 71.8 % (38.7-80.0); PLATELET COUNT 325 x10e3/uL (140-360); RED BLOOD COUNT 2.27 x10e6/uL (4.3-5.7); RED CELL DISTRIBUTION WIDTH 13.4 % (11.7-14.4)
[2020-05-16 05:24] LABS: ALBUMIN 1.9 g/dL (3.5-5.0); ALBUMIN/GLOBULIN RATIO 0.5 (0.8-2.0); ANION GAP 13.1 mmol/L (8-16); CALCIUM 7.9 mg/dL (8.4-10.2); CREATININE, SERUM 2.16 mg/dL (0.72-1.25); POTASSIUM 4.1 mmol/L (3.5-5.1)
[2020-05-16] MEDS: ENOXAPARIN 30 MG/0.3 ML SYR SC SCH (06:26)
[2020-05-16] MEDS ORDERED: SODIUM CHLORIDE 0.9% 250ML 250 ML ONE (07:36)
[2020-05-16] MEDS ORDERED: SODIUM CHLORIDE 0.9% 250ML 250 ML IV NR (08:45)
[2020-05-16] MEDS ORDERED: ACETAMINOPHEN 325 MG TAB PO NR (08:45)
[2020-05-16] MEDS ORDERED: POTASSIUM CHLORIDE 20MEQ/15ML UDC NG SCH (09:00)
[2020-05-16] MEDS ORDERED: HEPARIN SOD (PORCINE) 1000 UNIT/ML SDV IV PRN (09:45)
[2020-05-16 10:58] LABS: ABG HCO3 27 mmol/L (22-26); ABG PCO2 48 mmHg (35-45); ABG PH 7.36 (7.35-7.45); ABG PO2 149 mmHg (80-105); ABG TCO2 29
[2020-05-16] MEDS: ASCORBIC ACID 500 MG TAB PO SCH ×2 (13:00→18:34)
[2020-05-16] MEDS: PHENYTOIN 100 MG/4 ML CUP NG SCH ×2 (13:00→20:52)
[2020-05-16] MEDS: KCL 20 MEQ PACKET/ ORAL SOLN PO SCH (13:00)
[2020-05-16] MEDS: CALCIUM CARBONATE 500 MG CHEWABLE TABS PO SCH ×3 (13:00→20:52)
[2020-05-16] MEDS: ZINC SULFATE 220 MG CAP PO SCH (13:00)
[2020-05-16] MEDS: DEXAMETHASONE SOD PHOS INJ 4 MG/ML VIAL IV SCH (13:00)
[2020-05-16] MEDS: DOCUSATE SODIUM LIQD 100 MG/10 ML UDC NG SCH ×2 (13:00→18:34)
[2020-05-16] MEDS: FAMOTIDINE 20 MG/2 ML VIAL IV SCH ×2 (13:00→18:34)
[2020-05-16] MEDS: ASPIRIN 81 MG CHEW TAB PO SCH (13:00)
[2020-05-16] MEDS: ROCURONIUM BROMIDE 1,250 MG in SODIUM CHLORIDE 0.9% 250ML 125 ML IV SCH (13:30)
[2020-05-16 17:22] LABS: ABG HCO3 27 mmol/L (22-26); ABG PCO2 55 mmHg (35-45); ABG PO2 100 mmHg (80-105); ABG TCO2 29
[2020-05-16] MEDS ORDERED: MIDAZOLAM HCL 5MG/ML 10ML VIAL 100 ML IV ONE (22:04)
[2020-05-16] MEDS: MIDAZOLAM HCL 50 MG in SODIUM CHLORIDE 0.9% 100 ML 90 ML IV PRN (22:22)
[2020-05-17] VITALS (18 sets, daily range): BP systolic 99–191; BP diastolic 38–78
[2020-05-17] MEDS ORDERED: SODIUM CHLORIDE 0.9% 250ML 250 ML ONE (00:59)
[2020-05-17] MEDS: FENTANYL 2000MCG/NS 250 250 ML IV PRN (01:16)
[2020-05-17] MEDS: MEROPENEM 500MG/ NS 50ML 50 ML IV SCH ×2 (02:30→15:58)
[2020-05-17] MEDS ORDERED: MIDAZOLAM HCL 5MG/ML 10ML VIAL 100 ML IV ONE (03:25)
[2020-05-17] MEDS: MIDAZOLAM HCL 50 MG in SODIUM CHLORIDE 0.9% 100 ML 90 ML IV PRN (03:59)
[2020-05-17 04:43] LABS: BASOPHILS % 0.4 % (0.0-1.0); EOSINOPHILS # (AUTO) 0.2 (0.0-0.4); EOSINOPHILS % 3.4 % (0.0-6.0); HEMATOCRIT 25.3 % (38.2-49.6); HEMOGLOBIN 8.1 g/dL (14.0-18.0); LYMPHOCYTES # (AUTO) 1.1 (1.0-3.2); LYMPHOCYTES % 15.8 % (18.0-39.1); MEAN CORPUSCULAR HEMOGLOBIN 31.3 pg (28-32); MEAN CORPUSCULAR VOLUME 97.7 fL (81-99); MONOCYTES # (AUTO) 0.6 (0.2-0.8); MONOCYTES % 7.8 % (4.4-11.3); NEUTROPHILS % 69.4 % (38.7-80.0); PLATELET COUNT 344 x10e3/uL (140-360); RED BLOOD COUNT 2.59 x10e6/uL (4.3-5.7); RED CELL DISTRIBUTION WIDTH 13.6 % (11.7-14.4)
[2020-05-17 05:03] LABS: ALBUMIN 1.9 g/dL (3.5-5.0); ALBUMIN/GLOBULIN RATIO 0.4 (0.8-2.0); ANION GAP 14.3 mmol/L (8-16); CALCIUM 8.5 mg/dL (8.4-10.2); CREATININE, SERUM 2.11 mg/dL (0.72-1.25); POTASSIUM 4.3 mmol/L (3.5-5.1)
[2020-05-17] MEDS: ENOXAPARIN 30 MG/0.3 ML SYR SC SCH (06:04)
[2020-05-17] MEDS: FUROSEMIDE INJ 100 MG in SODIUM CHLORIDE 0.9% 100 ML 90 ML IV SCH ×2 (06:15→16:15)
[2020-05-17] MEDS: KCL 20 MEQ PACKET/ ORAL SOLN PO SCH (12:23)
[2020-05-17] MEDS: FAMOTIDINE 20 MG/2 ML VIAL IV SCH ×2 (12:23→16:04)
[2020-05-17] MEDS: PHENYTOIN 100 MG/4 ML CUP NG SCH ×2 (12:23→23:45)
[2020-05-17] MEDS: ASPIRIN 81 MG CHEW TAB PO SCH (12:23)
[2020-05-17] MEDS: DOCUSATE SODIUM LIQD 100 MG/10 ML UDC NG SCH ×2 (12:23→16:04)
[2020-05-17] MEDS: ZINC SULFATE 220 MG CAP PO SCH (12:24)
[2020-05-17] MEDS: CALCIUM CARBONATE 500 MG CHEWABLE TABS PO SCH ×2 (12:24→15:58)
[2020-05-17] MEDS: ASCORBIC ACID 500 MG TAB PO SCH ×2 (12:24→16:04)
[2020-05-17 15:37] LABS: ABG HCO3 27 mmol/L (22-26); ABG PCO2 51 mmHg (35-45); ABG PH 7.34 (7.35-7.45); ABG PO2 141 mmHg (80-105); ABG TCO2 29
[2020-05-17] MEDS: EPOETIN ALFA-EPBX 10,000 UNIT/ML VIAL SC SCH (15:58)
[2020-05-17 16:58] LABS: ABG HCO3 27 mmol/L (22-26); ABG PCO2 45 mmHg (35-45); ABG PH 7.38 (7.35-7.45); ABG PO2 121 mmHg (80-105); ABG TCO2 28
[2020-05-17] MEDS ORDERED: SODIUM CHLORIDE 0.9% 1000ML 1,000 ML IV SCH (17:30)
[2020-05-17] MEDS ORDERED: SOD POLYSTYRENE SULFONATE SUSP 15 GM/60 ML BTL PO ONE (17:30)
[2020-05-17] MEDS ORDERED: ROCURONIUM BROMIDE 1,250 MG in SODIUM CHLORIDE 0.9% 250ML 125 ML IV PRN (21:30)
[2020-05-17] MEDS ORDERED: MIDAZOLAM HCL 50 MG in SODIUM CHLORIDE 0.9% 100 ML 90 ML IV PRN (21:30)
[2020-05-17] MEDS: LABETALOL HCL 5 MG/ML 20ML VIAL IV PRN (21:45)
[2020-05-17] MEDS: HYDRALAZINE HCL 20 MG/ML VIAL IV PRN (22:30)
[2020-05-17] MEDS: MIDAZOLAM HCL 5MG/ML 10ML VIAL 100 ML IV PRN (23:15)
[2020-05-18] VITALS (12 sets, daily range): BP systolic 106–174; BP diastolic 34–97
[2020-05-18] MEDS: CALCIUM CARBONATE 500 MG CHEWABLE TABS PO SCH ×4 (00:45→21:45)
[2020-05-18] MEDS: MEROPENEM 500MG/ NS 50ML 50 ML IV SCH ×2 (01:55→15:16)
[2020-05-18] MEDS ORDERED: [UNRECOGNIZED DRUG - OTHER] IV ONE (02:29)
[2020-05-18] MEDS ORDERED: LIDOCAINE IV ONE (02:29)
[2020-05-18] MEDS: FENTANYL 2000MCG/NS 250 250 ML IV PRN ×2 (02:31→22:45)
[2020-05-18] MEDS: FUROSEMIDE INJ 100 MG in SODIUM CHLORIDE 0.9% 100 ML 90 ML IV SCH ×3 (03:45→15:13)
[2020-05-18 04:03] LABS: ABG PCO2 54 mmHg (35-45); ABG PH 7.31 (7.35-7.45); ABG PO2 82 mmHg (80-105)
[2020-05-18 04:04] LABS: ABG HCO3 27 mmol/L (22-26); ABG TCO2 29
[2020-05-18 05:29] LABS: BASOPHILS # (AUTO) 0.1 (0.0-0.1); BASOPHILS % 0.4 % (0.0-1.0); EOSINOPHILS % 0.3 % (0.0-6.0); HEMATOCRIT 28.4 % (38.2-49.6); HEMOGLOBIN 9.2 g/dL (14.0-18.0); LYMPHOCYTES # (AUTO) 0.8 (1.0-3.2); LYMPHOCYTES % 6.7 % (18.0-39.1); MEAN CORPUSCULAR HEMOGLOBIN 31.3 pg (28-32); MEAN CORPUSCULAR HGB CONC 32.4 g/dL (31-35); MEAN CORPUSCULAR VOLUME 96.6 fL (81-99); MONOCYTES # (AUTO) 0.8 (0.2-0.8); MONOCYTES % 6.8 % (4.4-11.3); NEUTROPHILS % 82.7 % (38.7-80.0); PLATELET COUNT 383 x10e3/uL (140-360); RED BLOOD COUNT 2.94 x10e6/uL (4.3-5.7); RED CELL DISTRIBUTION WIDTH 13.9 % (11.7-14.4)
[2020-05-18] MEDS ORDERED: HEPARIN SOD/SOD CHLORIDE 1,000 ML ONE (05:51)
[2020-05-18] MEDS: MIDAZOLAM HCL 5MG/ML 10ML VIAL 100 ML IV PRN ×2 (06:00→21:45)
[2020-05-18] MEDS: ENOXAPARIN 30 MG/0.3 ML SYR SC SCH (06:00)
[2020-05-18 06:02] LABS: ALBUMIN 2.4 g/dL (3.5-5.0); ALBUMIN/GLOBULIN RATIO 0.5 (0.8-2.0); ANION GAP 16.4 mmol/L (8-16); CALCIUM 8.9 mg/dL (8.4-10.2); CREATININE, SERUM 2.17 mg/dL (0.72-1.25); POTASSIUM 4.4 mmol/L (3.5-5.1)
[2020-05-18] MEDS: LABETALOL HCL 5 MG/ML 20ML VIAL IV PRN (06:15)
[2020-05-18] MEDS: NOREPINEPHRINE 8 MG/D5W 250 ML 250 ML IV SCH (08:00)
[2020-05-18] MEDS: ASPIRIN 81 MG CHEW TAB PO SCH (09:35)
[2020-05-18] MEDS: KCL 20 MEQ PACKET/ ORAL SOLN PO SCH (09:35)
[2020-05-18] MEDS: ZINC SULFATE 220 MG CAP PO SCH (09:35)
[2020-05-18] MEDS: ASCORBIC ACID 500 MG TAB PO SCH ×2 (09:35→16:13)
[2020-05-18] MEDS: DOCUSATE SODIUM LIQD 100 MG/10 ML UDC NG SCH ×2 (09:35→16:13)
[2020-05-18] MEDS: FAMOTIDINE 20 MG/2 ML VIAL IV SCH ×2 (09:35→15:17)
[2020-05-18 09:54] LABS: ABG HCO3 26 mmol/L (22-26); ABG PCO2 39 mmHg (35-45); ABG PH 7.43 (7.35-7.45); ABG PO2 92 mmHg (80-105); ABG TCO2 27
[2020-05-18] MEDS: ALBUMIN 25% 25GM 100ML 0.25 GM/ML BTL IV SCH ×3 (15:13→23:15)
[2020-05-18] MEDS: PHENYTOIN SODIUM INJ 50 MG/ML 2 ML VIAL IV SCH ×3 (15:13→21:45)
[2020-05-19] VITALS (24 sets, daily range): BP systolic 85–179; BP diastolic 31–73
[2020-05-19] MEDS: MEROPENEM 500MG/ NS 50ML 50 ML IV SCH ×2 (02:35→14:56)
[2020-05-19] MEDS ORDERED: SODIUM CHLORIDE 0.9% 250ML 250 ML ONE (02:51)
[2020-05-19] MEDS: MIDAZOLAM HCL 5MG/ML 10ML VIAL 100 ML IV PRN (04:00)
[2020-05-19 05:30] LABS: BASOPHILS % 0.5 % (0.0-1.0); EOSINOPHILS # (AUTO) 0.5 (0.0-0.4); EOSINOPHILS % 5.3 % (0.0-6.0); HEMATOCRIT 25.7 % (38.2-49.6); HEMOGLOBIN 8.3 g/dL (14.0-18.0); LYMPHOCYTES # (AUTO) 1.3 (1.0-3.2); MEAN CORPUSCULAR HEMOGLOBIN 31.3 pg (28-32); MEAN CORPUSCULAR HGB CONC 32.3 g/dL (31-35); MONOCYTES # (AUTO) 0.8 (0.2-0.8); MONOCYTES % 9.4 % (4.4-11.3); NEUTROPHILS # (AUTO) 5.8 (2.1-6.9); NEUTROPHILS % 65.8 % (38.7-80.0); PLATELET COUNT 366 x10e3/uL (140-360); RED BLOOD COUNT 2.65 x10e6/uL (4.3-5.7); RED CELL DISTRIBUTION WIDTH 13.7 % (11.7-14.4)
[2020-05-19 05:46] LABS: ALBUMIN 3.4 g/dL (3.5-5.0); ALBUMIN/GLOBULIN RATIO 0.8 (0.8-2.0); ANION GAP 15.4 mmol/L (8-16); CALCIUM 9.7 mg/dL (8.4-10.2); CREATININE, SERUM 1.71 mg/dL (0.72-1.25); POTASSIUM 3.4 mmol/L (3.5-5.1)
[2020-05-19 05:48] LABS: INR 1.08; PROTHROMBIN TIME 14.7 seconds (11.9-14.5)
[2020-05-19 05:49] LABS: PARTIAL THROMBOPLASTIN TIME 32.7 seconds (23.8-35.5)
[2020-05-19] MEDS: ENOXAPARIN 30 MG/0.3 ML SYR SC SCH (06:00)
[2020-05-19] MEDS: CALCIUM CARBONATE 500 MG CHEWABLE TABS PO SCH ×3 (06:00→22:15)
[2020-05-19] MEDS: PHENYTOIN SODIUM INJ 50 MG/ML 2 ML VIAL IV SCH ×3 (06:00→22:15)
[2020-05-19 07:16] LABS: MAGNESIUM 2.1 MG/DL (1.3-2.1)
[2020-05-19] MEDS: NOREPINEPHRINE 8 MG/D5W 250 ML 250 ML IV SCH (08:00)
[2020-05-19] MEDS: DOCUSATE SODIUM LIQD 100 MG/10 ML UDC NG SCH ×2 (08:30→17:16)
[2020-05-19] MEDS: ASPIRIN 81 MG CHEW TAB PO SCH (08:30)
[2020-05-19] MEDS: ZINC SULFATE 220 MG CAP PO SCH (08:30)
[2020-05-19] MEDS: ASCORBIC ACID 500 MG TAB PO SCH ×2 (08:30→17:16)
[2020-05-19] MEDS: EYE LUBRICANT OPTH OINT 3.5GM TUBE OP SCH (08:30)
[2020-05-19] MEDS: FAMOTIDINE 20 MG/2 ML VIAL IV SCH ×2 (08:30→17:16)
[2020-05-19] MEDS: KCL 20 MEQ PACKET/ ORAL SOLN PO SCH (08:30)
[2020-05-19 09:38] LABS: ABG HCO3 29 mmol/L (22-26); ABG PCO2 46 mmHg (35-45); ABG PH 7.41 (7.35-7.45); ABG PO2 100 mmHg (80-105); ABG TCO2 31
[2020-05-19] MEDS ORDERED: FUROSEMIDE INJ 100 MG in SODIUM CHLORIDE 0.9% 100 ML 90 ML IV SCH (14:15)
[2020-05-19] MEDS: BALSAM PERU/CASTOR OIL 60 GM OINT...G. TP SCH (17:16)
[2020-05-19] MEDS ORDERED: LACTATED RINGER'S 1,000 ML ONE (18:32)
[2020-05-19] MEDS: NOREPINEPHRINE 8 MG/D5W 250 ML 250 ML IV PRN (19:00)
[2020-05-19] MEDS ORDERED: LACTATED RINGER'S 1,000 ML INJ SCH ×2 (19:00→20:00)
[2020-05-19] MEDS: ROCURONIUM BROMIDE 1,250 MG in SODIUM CHLORIDE 0.9% 250ML 125 ML IV PRN (20:15)
[2020-05-19] MEDS ORDERED: ROCURONIUM BROMIDE 250 ML IV ONE (20:20)
[2020-05-20] VITALS (25 sets, daily range): BP systolic 91–156; BP diastolic 34–57
[2020-05-20] MEDS: FENTANYL 2000MCG/NS 250 250 ML IV PRN ×3 (01:03→17:53)
[2020-05-20] MEDS: MEROPENEM 500MG/ NS 50ML 50 ML IV SCH ×2 (04:30→15:05)
[2020-05-20 04:57] LABS: BASOPHILS % 0.4 % (0.0-1.0); EOSINOPHILS # (AUTO) 0.9 (0.0-0.4); EOSINOPHILS % 11.6 % (0.0-6.0); HEMATOCRIT 23.9 % (38.2-49.6); HEMOGLOBIN 7.5 g/dL (14.0-18.0); LYMPHOCYTES # (AUTO) 1.5 (1.0-3.2); LYMPHOCYTES % 20.1 % (18.0-39.1); MEAN CORPUSCULAR HEMOGLOBIN 30.6 pg (28-32); MEAN CORPUSCULAR HGB CONC 31.4 g/dL (31-35); MEAN CORPUSCULAR VOLUME 97.6 fL (81-99); MONOCYTES # (AUTO) 0.6 (0.2-0.8); MONOCYTES % 8.5 % (4.4-11.3); NEUTROPHILS # (AUTO) 4.1 (2.1-6.9); NEUTROPHILS % 55.6 % (38.7-80.0); PLATELET COUNT 365 x10e3/uL (140-360); RED BLOOD COUNT 2.45 x10e6/uL (4.3-5.7); RED CELL DISTRIBUTION WIDTH 13.8 % (11.7-14.4)
[2020-05-20 05:20] LABS: ALBUMIN 2.4 g/dL (3.5-5.0); ALBUMIN/GLOBULIN RATIO 0.6 (0.8-2.0); ANION GAP 11.1 mmol/L (8-16); CALCIUM 8.6 mg/dL (8.4-10.2); CREATININE, SERUM 1.28 mg/dL (0.72-1.25); POTASSIUM 3.1 mmol/L (3.5-5.1)
[2020-05-20] MEDS: MIDAZOLAM HCL 5MG/ML 10ML VIAL 100 ML IV PRN ×3 (05:40→18:17)
[2020-05-20] MEDS: ENOXAPARIN 30 MG/0.3 ML SYR SC SCH (05:40)
[2020-05-20] MEDS: PHENYTOIN SODIUM INJ 50 MG/ML 2 ML VIAL IV SCH ×3 (05:40→22:30)
[2020-05-20] MEDS: CALCIUM CARBONATE 500 MG CHEWABLE TABS PO SCH ×3 (05:45→22:30)
[2020-05-20] MEDS: FAMOTIDINE 20 MG/2 ML VIAL IV SCH ×2 (08:05→16:04)
[2020-05-20] MEDS: BALSAM PERU/CASTOR OIL 60 GM OINT...G. TP SCH ×2 (08:05→16:04)
[2020-05-20] MEDS: ASCORBIC ACID 500 MG TAB PO SCH ×2 (08:05→16:04)
[2020-05-20] MEDS: DOCUSATE SODIUM LIQD 100 MG/10 ML UDC NG SCH ×2 (08:05→16:04)
[2020-05-20] MEDS: ASPIRIN 81 MG CHEW TAB PO SCH (08:05)
[2020-05-20] MEDS: ZINC SULFATE 220 MG CAP PO SCH (08:05)
[2020-05-20] MEDS: EYE LUBRICANT OPTH OINT 3.5GM TUBE OP SCH (08:05)
[2020-05-20] MEDS: KCL 20 MEQ PACKET/ ORAL SOLN PO SCH ×2 (08:05→16:04)
[2020-05-20 09:48] LABS: ABG PCO2 55 mmHg (35-45); ABG PH 7.35 (7.35-7.45)
[2020-05-20 09:49] LABS: ABG HCO3 30 mmol/L (22-26); ABG PO2 85 mmHg (80-105); ABG TCO2 32
[2020-05-20] MEDS ORDERED: SODIUM CHLORIDE 0.9% 50ML 50 ML ONE (13:20)
[2020-05-20] MEDS ORDERED: KCL 20 MEQ PACKET/ ORAL SOLN NG NR (14:30)
[2020-05-20] MEDS: FUROSEMIDE INJ 10 MG/ML 2 ML VIAL IV SCH (16:04)
[2020-05-20] MEDS: ROCURONIUM BROMIDE 1,250 MG in SODIUM CHLORIDE 0.9% 250ML 125 ML IV PRN (17:53)
[2020-05-21] VITALS (25 sets, daily range): BP systolic 106–200; BP diastolic 37–66
[2020-05-21] MEDS: MIDAZOLAM HCL 5MG/ML 10ML VIAL 100 ML IV PRN ×4 (00:45→20:25)
[2020-05-21] MEDS: NOREPINEPHRINE 8 MG/D5W 250 ML 250 ML IV PRN (00:50)
[2020-05-21] MEDS: FENTANYL 2000MCG/NS 250 250 ML IV PRN ×3 (02:00→17:52)
[2020-05-21] MEDS: MEROPENEM 500MG/ NS 50ML 50 ML IV SCH ×2 (03:45→13:41)
[2020-05-21 05:09] LABS: BASOPHILS # (AUTO) 0.1 (0.0-0.1); BASOPHILS % 0.6 % (0.0-1.0); EOSINOPHILS # (AUTO) 0.9 (0.0-0.4); EOSINOPHILS % 10.6 % (0.0-6.0); HEMATOCRIT 25.1 % (38.2-49.6); HEMOGLOBIN 7.7 g/dL (14.0-18.0); LYMPHOCYTES # (AUTO) 1.4 (1.0-3.2); LYMPHOCYTES % 15.9 % (18.0-39.1); MEAN CORPUSCULAR HEMOGLOBIN 30.7 pg (28-32); MEAN CORPUSCULAR HGB CONC 30.7 g/dL (31-35); MONOCYTES # (AUTO) 0.7 (0.2-0.8); NEUTROPHILS # (AUTO) 5.4 (2.1-6.9); NEUTROPHILS % 61.1 % (38.7-80.0); PLATELET COUNT 370 x10e3/uL (140-360); RED BLOOD COUNT 2.51 x10e6/uL (4.3-5.7); RED CELL DISTRIBUTION WIDTH 13.8 % (11.7-14.4)
[2020-05-21] MEDS: PHENYTOIN SODIUM INJ 50 MG/ML 2 ML VIAL IV SCH ×3 (05:40→22:58)
[2020-05-21] MEDS: CALCIUM CARBONATE 500 MG CHEWABLE TABS PO SCH ×2 (05:40→13:41)
[2020-05-21] MEDS: ENOXAPARIN 30 MG/0.3 ML SYR SC SCH (05:40)
[2020-05-21 05:48] LABS: ALBUMIN 2.6 g/dL (3.5-5.0); ALBUMIN/GLOBULIN RATIO 0.7 (0.8-2.0); ANION GAP 8.9 mmol/L (8-16); CALCIUM 8.9 mg/dL (8.4-10.2); CREATININE, SERUM 1.4 mg/dL (0.72-1.25); POTASSIUM 3.9 mmol/L (3.5-5.1)
[2020-05-21] MEDS: EYE LUBRICANT OPTH OINT 3.5GM TUBE OP SCH (08:09)
[2020-05-21] MEDS: DOCUSATE SODIUM LIQD 100 MG/10 ML UDC NG SCH ×2 (08:09→16:25)
[2020-05-21] MEDS: FAMOTIDINE 20 MG/2 ML VIAL IV SCH ×2 (08:09→16:25)
[2020-05-21] MEDS: ASPIRIN 81 MG CHEW TAB PO SCH (08:10)
[2020-05-21] MEDS: BALSAM PERU/CASTOR OIL 60 GM OINT...G. TP SCH ×2 (08:10→16:25)
[2020-05-21] MEDS: ZINC SULFATE 220 MG CAP PO SCH (08:10)
[2020-05-21] MEDS: ASCORBIC ACID 500 MG TAB PO SCH ×2 (08:10→16:25)
[2020-05-21] MEDS: FUROSEMIDE INJ 10 MG/ML 2 ML VIAL IV SCH (08:10)
[2020-05-21] MEDS ORDERED: SODIUM CHLORIDE 0.9% 50ML 50 ML ONE (13:20)
[2020-05-21] MEDS: FUROSEMIDE INJ 100 MG in SODIUM CHLORIDE 0.9% 100 ML 90 ML IV SCH (15:02)
[2020-05-21 17:32] LABS: ABG PCO2 46 mmHg (35-45)
[2020-05-21 17:33] LABS: ABG HCO3 28 mmol/L (22-26); ABG PO2 84 mmHg (80-105); ABG TCO2 30
[2020-05-21] MEDS ORDERED: HEPARIN SOD/SOD CHLORIDE 1,000 ML ONE (22:07)
[2020-05-21] MEDS: METOCLOPRAMIDE HCL 10 MG/2ML VIAL IV SCH (23:05)
[2020-05-22] VITALS (23 sets, daily range): BP systolic 92–170; BP diastolic 33–74
[2020-05-22] MEDS: ROCURONIUM BROMIDE 1,250 MG in SODIUM CHLORIDE 0.9% 250ML 125 ML IV PRN (01:15)
[2020-05-22] MEDS: MEROPENEM 500MG/ NS 50ML 50 ML IV SCH ×2 (01:45→13:21)
[2020-05-22] MEDS: FENTANYL 2000MCG/NS 250 250 ML IV PRN ×3 (02:30→17:29)
[2020-05-22] MEDS: MIDAZOLAM HCL 5MG/ML 10ML VIAL 100 ML IV PRN ×4 (02:30→20:15)
[2020-05-22 05:12] LABS: BASOPHILS % 0.5 % (0.0-1.0); EOSINOPHILS # (AUTO) 1.2 (0.0-0.4); HEMATOCRIT 25.1 % (38.2-49.6); HEMOGLOBIN 7.8 g/dL (14.0-18.0); LYMPHOCYTES # (AUTO) 1.1 (1.0-3.2); LYMPHOCYTES % 14.2 % (18.0-39.1); MEAN CORPUSCULAR HEMOGLOBIN 30.8 pg (28-32); MEAN CORPUSCULAR HGB CONC 31.1 g/dL (31-35); MEAN CORPUSCULAR VOLUME 99.2 fL (81-99); MONOCYTES # (AUTO) 0.6 (0.2-0.8); NEUTROPHILS # (AUTO) 4.7 (2.1-6.9); NEUTROPHILS % 60.2 % (38.7-80.0); PLATELET COUNT 351 x10e3/uL (140-360); RED BLOOD COUNT 2.53 x10e6/uL (4.3-5.7); RED CELL DISTRIBUTION WIDTH 13.5 % (11.7-14.4)
[2020-05-22 05:43] LABS: ALANINE AMINOTRANSFERASE 25 IU/L (0-55); ALBUMIN 2.4 g/dL (3.5-5.0); ALBUMIN/GLOBULIN RATIO 0.6 (0.8-2.0); ALKALINE PHOSPHATASE 79 IU/L (40-150); ANION GAP 12.2 mmol/L (8-16); BLOOD UREA NITROGEN 62 mg/dL (7-26); BUN/CREATININE RATIO 59 (6-25); CALCIUM 8.6 mg/dL (8.4-10.2); CARBON DIOXIDE 29 mmol/L (22-29); CHLORIDE 111 mmol/L (98-107); CREATININE, SERUM 1.05 mg/dL (0.72-1.25); EST GLOMERULAR FILTRATION RATE > 60 ML/MIN (60-); GLUCOSE 114 mg/dL (74-118); POTASSIUM 4.2 mmol/L (3.5-5.1); SODIUM 148 mmol/L (136-145)
[2020-05-22 06:12] LABS: MAGNESIUM 1.9 MG/DL (1.3-2.1); PHOSPHORUS 4.8 MG/DL (2.3-4.7)
[2020-05-22] MEDS: METOCLOPRAMIDE HCL 10 MG/2ML VIAL IV SCH ×4 (06:21→23:00)
[2020-05-22] MEDS: ENOXAPARIN 30 MG/0.3 ML SYR SC SCH (06:21)
[2020-05-22] MEDS: PHENYTOIN SODIUM INJ 50 MG/ML 2 ML VIAL IV SCH ×3 (06:21→22:55)
[2020-05-22] MEDS: PANTOPRAZOLE 40 MG 10ML VIAL IV SCH (07:24)
[2020-05-22] MEDS: BALSAM PERU/CASTOR OIL 60 GM OINT...G. TP SCH ×2 (08:55→17:27)
[2020-05-22] MEDS: EYE LUBRICANT OPTH OINT 3.5GM TUBE OP SCH (08:55)
[2020-05-22] MEDS: ASCORBIC ACID 500 MG TAB PO SCH ×2 (08:55→17:27)
[2020-05-22] MEDS: ASPIRIN 81 MG CHEW TAB PO SCH (08:55)
[2020-05-22] MEDS: KCL 20 MEQ PACKET/ ORAL SOLN PO SCH (08:55)
[2020-05-22] MEDS: ZINC SULFATE 220 MG CAP PO SCH (08:55)
[2020-05-22] MEDS: DOCUSATE SODIUM LIQD 100 MG/10 ML UDC NG SCH ×2 (08:55→17:27)
[2020-05-22] MEDS: FAMOTIDINE 20 MG/2 ML VIAL IV SCH ×2 (08:55→17:27)
[2020-05-22] MEDS ORDERED: CALCIUM CARBONATE 500 MG CHEWABLE TABS PO SCH (09:00)
[2020-05-22 10:27] LABS: ABG HCO3 28 mmol/L (22-26); ABG PCO2 44 mmHg (35-45); ABG PH 7.41 (7.35-7.45); ABG PO2 90 mmHg (80-105); ABG TCO2 29
[2020-05-22] MEDS: FUROSEMIDE INJ 100 MG in SODIUM CHLORIDE 0.9% 100 ML 90 ML IV SCH (13:20)
[2020-05-22] MEDS: CALCIUM CARBONATE 500 MG CHEWABLE TABS PO SCH (13:20)
[2020-05-23] VITALS (24 sets, daily range): BP systolic 94–212; BP diastolic 34–81
[2020-05-23] MEDS: MIDAZOLAM HCL 5MG/ML 10ML VIAL 100 ML IV PRN ×5 (01:25→23:00)
[2020-05-23] MEDS: FENTANYL 2000MCG/NS 250 250 ML IV PRN ×3 (02:20→17:48)
[2020-05-23] MEDS: ROCURONIUM BROMIDE 1,250 MG in SODIUM CHLORIDE 0.9% 250ML 125 ML IV PRN (03:20)
[2020-05-23] MEDS: MEROPENEM 500MG/ NS 50ML 50 ML IV SCH ×2 (03:20→13:27)
[2020-05-23] MEDS: PHENYTOIN SODIUM INJ 50 MG/ML 2 ML VIAL IV SCH ×3 (06:15→22:20)
[2020-05-23] MEDS: METOCLOPRAMIDE HCL 10 MG/2ML VIAL IV SCH ×4 (06:15→23:00)
[2020-05-23 07:01] LABS: ANION GAP 12.2 mmol/L (8-16); BLOOD UREA NITROGEN 49 mg/dL (7-26); BUN/CREATININE RATIO 52 (6-25); CALCIUM 8.4 mg/dL (8.4-10.2); CARBON DIOXIDE 31 mmol/L (22-29); CHLORIDE 108 mmol/L (98-107); CREATININE, SERUM 0.94 mg/dL (0.72-1.25); EST GLOMERULAR FILTRATION RATE > 60 ML/MIN (60-); GLUCOSE 109 mg/dL (74-118); POTASSIUM 4.2 mmol/L (3.5-5.1); SODIUM 147 mmol/L (136-145)
[2020-05-23] MEDS: CALCIUM CARBONATE 500 MG CHEWABLE TABS PO SCH (07:30)
[2020-05-23] MEDS: ZINC SULFATE 220 MG CAP PO SCH (07:30)
[2020-05-23] MEDS: DOCUSATE SODIUM LIQD 100 MG/10 ML UDC NG SCH ×2 (07:30→17:47)
[2020-05-23] MEDS: ASCORBIC ACID 500 MG TAB PO SCH ×2 (07:30→17:47)
[2020-05-23] MEDS: FAMOTIDINE 20 MG/2 ML VIAL IV SCH ×2 (07:30→17:47)
[2020-05-23] MEDS: KCL 20 MEQ PACKET/ ORAL SOLN PO SCH (07:30)
[2020-05-23 07:55] LABS: BASOPHILS % 0.3 % (0.0-1.0); EOSINOPHILS # (AUTO) 0.8 (0.0-0.4); EOSINOPHILS % 13.1 % (0.0-6.0); HEMATOCRIT 25.4 % (38.2-49.6); HEMOGLOBIN 7.8 g/dL (14.0-18.0); LYMPHOCYTES % 16.5 % (18.0-39.1); MEAN CORPUSCULAR HGB CONC 30.7 g/dL (31-35); MEAN CORPUSCULAR VOLUME 100.8 fL (81-99); MONOCYTES # (AUTO) 0.5 (0.2-0.8); MONOCYTES % 7.5 % (4.4-11.3); NEUTROPHILS # (AUTO) 3.8 (2.1-6.9); PLATELET COUNT 339 x10e3/uL (140-360); RED BLOOD COUNT 2.52 x10e6/uL (4.3-5.7); RED CELL DISTRIBUTION WIDTH 13.7 % (11.7-14.4)
[2020-05-23] MEDS: PANTOPRAZOLE 40 MG 10ML VIAL IV SCH (08:32)
[2020-05-23] MEDS: EYE LUBRICANT OPTH OINT 3.5GM TUBE OP SCH (08:33)
[2020-05-23] MEDS: ASPIRIN 81 MG CHEW TAB PO SCH (08:33)
[2020-05-23] MEDS: BALSAM PERU/CASTOR OIL 60 GM OINT...G. TP SCH ×2 (08:33→17:47)
[2020-05-23] MEDS ORDERED: BUPIVACAINE HCL 0.5% INJ 30 ML VIAL INJ ONE (09:20)
[2020-05-23 09:21] LABS: ABG PH 7.37 (7.35-7.45)
[2020-05-23] MEDS: FUROSEMIDE INJ 100 MG in SODIUM CHLORIDE 0.9% 100 ML 90 ML IV SCH (09:21)
[2020-05-23 09:22] LABS: ABG HCO3 34 mmol/L (22-26); ABG PCO2 58 mmHg (35-45); ABG PO2 90 mmHg (80-105); ABG TCO2 35
[2020-05-23] MEDS ORDERED: SODIUM CHLORIDE 0.9% 1000ML 1,000 ML ONE (11:21)
[2020-05-23] MEDS ORDERED: PROPOFOL IV EMULSION 10 MG/ML 20 ML VIAL ONE (12:56)
[2020-05-23] MEDS: HYDRALAZINE HCL 20 MG/ML VIAL IV PRN (22:20)
[2020-05-24] VITALS (24 sets, daily range): BP systolic 85–196; BP diastolic 33–64
[2020-05-24] MEDS: FENTANYL 2000MCG/NS 250 250 ML IV PRN ×3 (00:30→17:55)
[2020-05-24] MEDS: MIDAZOLAM HCL 5MG/ML 10ML VIAL 100 ML IV PRN ×3 (05:24→17:56)
[2020-05-24] MEDS: METOCLOPRAMIDE HCL 10 MG/2ML VIAL IV SCH ×4 (05:24→23:00)
[2020-05-24] MEDS: PHENYTOIN SODIUM INJ 50 MG/ML 2 ML VIAL IV SCH ×3 (05:24→22:55)
[2020-05-24] MEDS: MEROPENEM 500MG/ NS 50ML 50 ML IV SCH ×2 (05:24→14:30)
[2020-05-24 06:31] LABS: ALANINE AMINOTRANSFERASE 33 IU/L (0-55); ALBUMIN 2.8 g/dL (3.5-5.0); ALBUMIN/GLOBULIN RATIO 0.6 (0.8-2.0); ALKALINE PHOSPHATASE 110 IU/L (40-150); ANION GAP 12.2 mmol/L (8-16); BLOOD UREA NITROGEN 39 mg/dL (7-26); BUN/CREATININE RATIO 42 (6-25); CARBON DIOXIDE 34 mmol/L (22-29); CHLORIDE 108 mmol/L (98-107); CREATININE, SERUM 0.92 mg/dL (0.72-1.25); EST GLOMERULAR FILTRATION RATE > 60 ML/MIN (60-); GLUCOSE 123 mg/dL (74-118); POTASSIUM 4.2 mmol/L (3.5-5.1); SODIUM 150 mmol/L (136-145)
[2020-05-24 06:42] LABS: MAGNESIUM 1.7 MG/DL (1.3-2.1); PHOSPHORUS 4.7 MG/DL (2.3-4.7)
[2020-05-24] MEDS: HYDRALAZINE HCL 20 MG/ML VIAL IV PRN (06:55)
[2020-05-24 07:16] LABS: BASOPHILS % 0.3 % (0.0-1.0); EOSINOPHILS # (AUTO) 0.3 (0.0-0.4); EOSINOPHILS % 2.3 % (0.0-6.0); HEMATOCRIT 31.3 % (38.2-49.6); HEMOGLOBIN 9.7 g/dL (14.0-18.0); LYMPHOCYTES # (AUTO) 0.8 (1.0-3.2); LYMPHOCYTES % 7.2 % (18.0-39.1); MEAN CORPUSCULAR HEMOGLOBIN 31.3 pg (28-32); MONOCYTES # (AUTO) 0.6 (0.2-0.8); MONOCYTES % 5.2 % (4.4-11.3); NEUTROPHILS # (AUTO) 9.6 (2.1-6.9); NEUTROPHILS % 83.8 % (38.7-80.0); PLATELET COUNT 369 x10e3/uL (140-360); RED CELL DISTRIBUTION WIDTH 13.7 % (11.7-14.4)
[2020-05-24 08:36] LABS: ABG HCO3 34 mmol/L (22-26); ABG PCO2 69 mmHg (35-45); ABG PO2 110 mmHg (80-105); ABG TCO2 36
[2020-05-24] MEDS: KCL 20 MEQ PACKET/ ORAL SOLN PO SCH (09:10)
[2020-05-24] MEDS: BALSAM PERU/CASTOR OIL 60 GM OINT...G. TP SCH ×2 (09:10→17:55)
[2020-05-24] MEDS: DOCUSATE SODIUM LIQD 100 MG/10 ML UDC NG SCH ×2 (09:10→17:55)
[2020-05-24] MEDS: ASCORBIC ACID 500 MG TAB PO SCH ×2 (09:10→17:55)
[2020-05-24] MEDS: ZINC SULFATE 220 MG CAP PO SCH (09:10)
[2020-05-24] MEDS: PANTOPRAZOLE 40 MG 10ML VIAL IV SCH (09:10)
[2020-05-24] MEDS: ASPIRIN 81 MG CHEW TAB PO SCH (09:10)
[2020-05-24] MEDS: FAMOTIDINE 20 MG/2 ML VIAL IV SCH ×2 (09:10→17:55)
[2020-05-24] MEDS: CALCIUM CARBONATE 500 MG CHEWABLE TABS PO SCH (09:10)
[2020-05-24] MEDS: EYE LUBRICANT OPTH OINT 3.5GM TUBE OP SCH (09:10)
[2020-05-24] MEDS: ALBUMIN 25% 25GM 100ML 0.25 GM/ML BTL IV SCH ×2 (10:16→17:00)
[2020-05-24 10:25] LABS: ABG PCO2 54 mmHg (35-45); ABG PO2 72 mmHg (80-105)
[2020-05-24 10:26] LABS: ABG HCO3 33 mmol/L (22-26); ABG TCO2 35
[2020-05-24] MEDS ORDERED: ACETAZOLAMIDE SODIUM 500 MG/VIAL IV ONE (11:00)
[2020-05-24] MEDS ORDERED: LACTATED RINGER'S 500 ML INJ ONE (13:15)
[2020-05-24] MEDS: ENOXAPARIN SOD INJ 40 MG/0.4 ML SYR SC SCH (17:55)
[2020-05-25] VITALS (25 sets, daily range): BP systolic 91–180; BP diastolic 34–60
[2020-05-25] MEDS ORDERED: FENTANYL CITRATE INJ 2,000 MCG in SODIUM CHLORIDE 0.9% 250ML 210 ML IV PRN ×2
[2020-05-25] MEDS: ALBUMIN 25% 25GM 100ML 0.25 GM/ML BTL IV SCH (01:30)
[2020-05-25] MEDS ORDERED: FENTANYL 2000MCG/NS 250 250 ML ONE (02:24)
[2020-05-25] MEDS: MEROPENEM 500MG/ NS 50ML 50 ML IV SCH ×2 (02:45→15:20)
[2020-05-25] MEDS: MIDAZOLAM HCL 5MG/ML 10ML VIAL 100 ML IV PRN ×3 (02:53→22:42)
[2020-05-25 05:22] LABS: BASOPHILS % 0.5 % (0.0-1.0); EOSINOPHILS # (AUTO) 0.6 (0.0-0.4); EOSINOPHILS % 7.4 % (0.0-6.0); HEMATOCRIT 24.3 % (38.2-49.6); HEMOGLOBIN 7.4 g/dL (14.0-18.0); LYMPHOCYTES % 12.6 % (18.0-39.1); MEAN CORPUSCULAR HGB CONC 30.5 g/dL (31-35); MEAN CORPUSCULAR VOLUME 101.7 fL (81-99); MONOCYTES # (AUTO) 0.7 (0.2-0.8); MONOCYTES % 8.3 % (4.4-11.3); NEUTROPHILS # (AUTO) 5.7 (2.1-6.9); NEUTROPHILS % 70.1 % (38.7-80.0); PLATELET COUNT 306 x10e3/uL (140-360); RED BLOOD COUNT 2.39 x10e6/uL (4.3-5.7); RED CELL DISTRIBUTION WIDTH 13.6 % (11.7-14.4)
[2020-05-25 05:48] LABS: ALANINE AMINOTRANSFERASE 29 IU/L (0-55); ALBUMIN 3.1 g/dL (3.5-5.0); ALBUMIN/GLOBULIN RATIO 0.9 (0.8-2.0); ALKALINE PHOSPHATASE 89 IU/L (40-150); ANION GAP 12.1 mmol/L (8-16); BLOOD UREA NITROGEN 42 mg/dL (7-26); BUN/CREATININE RATIO 47 (6-25); CALCIUM 9.3 mg/dL (8.4-10.2); CARBON DIOXIDE 31 mmol/L (22-29); CHLORIDE 112 mmol/L (98-107); EST GLOMERULAR FILTRATION RATE > 60 ML/MIN (60-); GLUCOSE 116 mg/dL (74-118); POTASSIUM 3.1 mmol/L (3.5-5.1); SODIUM 152 mmol/L (136-145)
[2020-05-25] MEDS: PHENYTOIN SODIUM INJ 50 MG/ML 2 ML VIAL IV SCH ×3 (06:15→22:10)
[2020-05-25] MEDS: METOCLOPRAMIDE HCL 10 MG/2ML VIAL IV SCH ×4 (06:15→23:40)
[2020-05-25] MEDS ORDERED: POTASSIUM CHLORIDE 20MEQ/100ML 200 ML IV ONE (07:30)
[2020-05-25] MEDS: EYE LUBRICANT OPTH OINT 3.5GM TUBE OP SCH (07:59)
[2020-05-25] MEDS: PANTOPRAZOLE 40 MG 10ML VIAL IV SCH (07:59)
[2020-05-25] MEDS: FAMOTIDINE 20 MG/2 ML VIAL IV SCH ×2 (07:59→16:03)
[2020-05-25] MEDS: ASPIRIN 81 MG CHEW TAB PO SCH (07:59)
[2020-05-25] MEDS: DOCUSATE SODIUM LIQD 100 MG/10 ML UDC NG SCH ×2 (07:59→16:03)
[2020-05-25] MEDS: CITALOPRAM HYDROBROMIDE 20 MG TAB PO SCH (07:59)
[2020-05-25] MEDS: ASCORBIC ACID 500 MG TAB PO SCH ×2 (08:00→16:03)
[2020-05-25] MEDS: KCL 20 MEQ PACKET/ ORAL SOLN PO SCH (08:00)
[2020-05-25] MEDS: ZINC SULFATE 220 MG CAP PO SCH (08:00)
[2020-05-25] MEDS: BALSAM PERU/CASTOR OIL 60 GM OINT...G. TP SCH ×2 (08:00→16:03)
[2020-05-25 09:58] LABS: ABG HCO3 30 mmol/L (22-26); ABG PCO2 51 mmHg (35-45); ABG PH 7.38 (7.35-7.45); ABG PO2 107 mmHg (80-105); ABG TCO2 32
[2020-05-25] MEDS: ACETAMINOPHEN 325 MG TAB PO PRN (12:04)
[2020-05-25] MEDS ORDERED: DEXTROSE 5%/0.225% SOD CHL 1,000 ML IV ONE (15:45)
[2020-05-25] MEDS: ENOXAPARIN SOD INJ 40 MG/0.4 ML SYR SC SCH (16:03)
[2020-05-25] MEDS: FENTANYL 2000MCG/NS 250 250 ML IV PRN (22:42)
[2020-05-26] VITALS (25 sets, daily range): BP systolic 95–155; BP diastolic 36–63
[2020-05-26] MEDS: MIDAZOLAM HCL 5MG/ML 10ML VIAL 100 ML IV PRN ×2 (04:59→14:23)
[2020-05-26 05:37] LABS: ALANINE AMINOTRANSFERASE 18 IU/L (0-55); ALBUMIN 2.9 g/dL (3.5-5.0); ALBUMIN/GLOBULIN RATIO 0.9 (0.8-2.0); ALKALINE PHOSPHATASE 75 IU/L (40-150); ANION GAP 9.7 mmol/L (8-16); BLOOD UREA NITROGEN 48 mg/dL (7-26); BUN/CREATININE RATIO 51 (6-25); CARBON DIOXIDE 30 mmol/L (22-29); CHLORIDE 113 mmol/L (98-107); CREATININE, SERUM 0.95 mg/dL (0.72-1.25); EST GLOMERULAR FILTRATION RATE > 60 ML/MIN (60-); GLUCOSE 166 mg/dL (74-118); POTASSIUM 3.7 mmol/L (3.5-5.1); SODIUM 149 mmol/L (136-145)
[2020-05-26 06:08] LABS: BASOPHILS % 0.3 % (0.0-1.0); EOSINOPHILS # (AUTO) 0.9 (0.0-0.4); EOSINOPHILS % 11.3 % (0.0-6.0); LYMPHOCYTES # (AUTO) 1.4 (1.0-3.2); LYMPHOCYTES % 17.3 % (18.0-39.1); MEAN CORPUSCULAR HEMOGLOBIN 30.9 pg (28-32); MEAN CORPUSCULAR HGB CONC 30.1 g/dL (31-35); MEAN CORPUSCULAR VOLUME 102.7 fL (81-99); MONOCYTES # (AUTO) 0.6 (0.2-0.8); NEUTROPHILS % 63.5 % (38.7-80.0); PLATELET COUNT 239 x10e3/uL (140-360); RED BLOOD COUNT 2.23 x10e6/uL (4.3-5.7)
[2020-05-26 06:13] LABS: HEMATOCRIT 22.9 % (38.2-49.6); HEMOGLOBIN 6.9 g/dL (14.0-18.0)
[2020-05-26] MEDS: PHENYTOIN SODIUM INJ 50 MG/ML 2 ML VIAL IV SCH ×3 (06:23→21:33)
[2020-05-26] MEDS: METOCLOPRAMIDE HCL 10 MG/2ML VIAL IV SCH ×4 (06:24→23:44)
[2020-05-26 06:41] LABS: MAGNESIUM 2.1 MG/DL (1.3-2.1); PHOSPHORUS 2.9 MG/DL (2.3-4.7)
[2020-05-26] MEDS ORDERED: SODIUM CHLORIDE 0.9% 250ML 250 ML IV ONE (07:30)
[2020-05-26] MEDS: ASPIRIN 81 MG CHEW TAB PO SCH (08:33)
[2020-05-26] MEDS: DOCUSATE SODIUM LIQD 100 MG/10 ML UDC NG SCH ×2 (08:33→17:37)
[2020-05-26] MEDS: ASCORBIC ACID 500 MG TAB PO SCH ×2 (08:33→17:37)
[2020-05-26] MEDS: KCL 20 MEQ PACKET/ ORAL SOLN PO SCH (08:33)
[2020-05-26] MEDS: PANTOPRAZOLE 40 MG 10ML VIAL IV SCH (08:33)
[2020-05-26] MEDS: EYE LUBRICANT OPTH OINT 3.5GM TUBE OP SCH (08:33)
[2020-05-26] MEDS: FAMOTIDINE 20 MG/2 ML VIAL IV SCH ×2 (08:33→17:37)
[2020-05-26] MEDS: CITALOPRAM HYDROBROMIDE 20 MG TAB PO SCH (08:33)
[2020-05-26] MEDS: ZINC SULFATE 220 MG CAP PO SCH (08:34)
[2020-05-26] MEDS: BALSAM PERU/CASTOR OIL 60 GM OINT...G. TP SCH ×2 (08:34→17:37)
[2020-05-26] MEDS ORDERED: ACETAZOLAMIDE SODIUM 500 MG/VIAL IV ONE (09:15)
[2020-05-26 11:23] LABS: ABG HCO3 30 mmol/L (22-26); ABG PCO2 50 mmHg (35-45); ABG PH 7.38 (7.35-7.45); ABG PO2 92 mmHg (80-105); ABG TCO2 31
[2020-05-26] MEDS ORDERED: SODIUM CHLORIDE 0.9% 100 ML ONE (12:20)
[2020-05-26] MEDS: FENTANYL 2000MCG/NS 250 250 ML IV PRN (12:31)
[2020-05-26] MEDS: ENOXAPARIN SOD INJ 40 MG/0.4 ML SYR SC SCH (17:37)
[2020-05-26] MEDS: FUROSEMIDE INJ 10 MG/ML 4 ML VIAL IV SCH (21:33)
[2020-05-27] VITALS (23 sets, daily range): BP systolic 129–177; BP diastolic 40–64
[2020-05-27] MEDS: FENTANYL 2000MCG/NS 250 250 ML IV PRN ×2 (03:40→23:16)
[2020-05-27] MEDS: MIDAZOLAM HCL 5MG/ML 10ML VIAL 100 ML IV PRN (04:30)
[2020-05-27 05:39] LABS: BASOPHILS # (AUTO) 0.1 (0.0-0.1); BASOPHILS % 0.5 % (0.0-1.0); EOSINOPHILS % 10.2 % (0.0-6.0); HEMATOCRIT 27.3 % (38.2-49.6); HEMOGLOBIN 8.5 g/dL (14.0-18.0); LYMPHOCYTES % 9.7 % (18.0-39.1); MEAN CORPUSCULAR HEMOGLOBIN 31.5 pg (28-32); MEAN CORPUSCULAR HGB CONC 31.1 g/dL (31-35); MEAN CORPUSCULAR VOLUME 101.1 fL (81-99); MONOCYTES # (AUTO) 0.7 (0.2-0.8); NEUTROPHILS # (AUTO) 7.3 (2.1-6.9); NEUTROPHILS % 71.9 % (38.7-80.0); PLATELET COUNT 283 x10e3/uL (140-360)
[2020-05-27 06:00] LABS: ALANINE AMINOTRANSFERASE 19 IU/L (0-55); ALBUMIN 3.1 g/dL (3.5-5.0); ALBUMIN/GLOBULIN RATIO 0.8 (0.8-2.0); ALKALINE PHOSPHATASE 98 IU/L (40-150); BLOOD UREA NITROGEN 43 mg/dL (7-26); BUN/CREATININE RATIO 50 (6-25); CALCIUM 9.6 mg/dL (8.4-10.2); CARBON DIOXIDE 30 mmol/L (22-29); CHLORIDE 112 mmol/L (98-107); CREATININE, SERUM 0.86 mg/dL (0.72-1.25); EST GLOMERULAR FILTRATION RATE > 60 ML/MIN (60-); GLUCOSE 124 mg/dL (74-118); SODIUM 148 mmol/L (136-145)
[2020-05-27] MEDS: PHENYTOIN SODIUM INJ 50 MG/ML 2 ML VIAL IV SCH ×3 (06:07→21:12)
[2020-05-27] MEDS: METOCLOPRAMIDE HCL 10 MG/2ML VIAL IV SCH ×3 (06:07→17:39)
[2020-05-27] MEDS ORDERED: ACETAZOLAMIDE SODIUM 500 MG/VIAL IV STA (06:24)
[2020-05-27] MEDS: PANTOPRAZOLE 40 MG 10ML VIAL IV SCH (09:00)
[2020-05-27 09:44] LABS: BILIRUBIN,DIRECT 0.2 mg/dL (0.0-0.5)
[2020-05-27] MEDS: ZINC SULFATE 220 MG CAP PO SCH (10:04)
[2020-05-27] MEDS: FAMOTIDINE 20 MG/2 ML VIAL IV SCH ×2 (10:04→17:00)
[2020-05-27] MEDS: DOCUSATE SODIUM LIQD 100 MG/10 ML UDC NG SCH ×2 (10:04→16:55)
[2020-05-27] MEDS: BALSAM PERU/CASTOR OIL 60 GM OINT...G. TP SCH ×2 (10:04→16:57)
[2020-05-27] MEDS: CITALOPRAM HYDROBROMIDE 20 MG TAB PO SCH (10:04)
[2020-05-27] MEDS: EYE LUBRICANT OPTH OINT 3.5GM TUBE OP SCH (10:04)
[2020-05-27] MEDS: ASCORBIC ACID 500 MG TAB PO SCH ×2 (10:04→16:55)
[2020-05-27] MEDS: KCL 20 MEQ PACKET/ ORAL SOLN PO SCH (10:04)
[2020-05-27] MEDS: FUROSEMIDE INJ 10 MG/ML 4 ML VIAL IV SCH ×2 (10:04→21:11)
[2020-05-27] MEDS: ASPIRIN 81 MG CHEW TAB PO SCH (10:04)
[2020-05-27] MEDS: ENOXAPARIN SOD INJ 40 MG/0.4 ML SYR SC SCH (17:00)
[2020-05-28] VITALS (26 sets, daily range): BP systolic 93–172; BP diastolic 37–73
[2020-05-28] MEDS: METOCLOPRAMIDE HCL 10 MG/2ML VIAL IV SCH ×4 (00:26→17:22)
[2020-05-28 04:48] LABS: BASOPHILS # (AUTO) 0.1 (0.0-0.1); BASOPHILS % 0.5 % (0.0-1.0); EOSINOPHILS % 9.6 % (0.0-6.0); HEMATOCRIT 29.6 % (38.2-49.6); HEMOGLOBIN 9.2 g/dL (14.0-18.0); LYMPHOCYTES # (AUTO) 1.1 (1.0-3.2); LYMPHOCYTES % 10.9 % (18.0-39.1); MEAN CORPUSCULAR HGB CONC 31.1 g/dL (31-35); MEAN CORPUSCULAR VOLUME 99.7 fL (81-99); MONOCYTES # (AUTO) 0.8 (0.2-0.8); MONOCYTES % 7.7 % (4.4-11.3); NEUTROPHILS # (AUTO) 7.1 (2.1-6.9); NEUTROPHILS % 70.9 % (38.7-80.0); PLATELET COUNT 310 x10e3/uL (140-360); RED BLOOD COUNT 2.97 x10e6/uL (4.3-5.7); RED CELL DISTRIBUTION WIDTH 13.8 % (11.7-14.4)
[2020-05-28 05:07] LABS: ALANINE AMINOTRANSFERASE 24 IU/L (0-55); ALBUMIN/GLOBULIN RATIO 0.7 (0.8-2.0); ALKALINE PHOSPHATASE 107 IU/L (40-150); ANION GAP 14.2 mmol/L (8-16); BLOOD UREA NITROGEN 34 mg/dL (7-26); BUN/CREATININE RATIO 41 (6-25); CALCIUM 9.2 mg/dL (8.4-10.2); CARBON DIOXIDE 29 mmol/L (22-29); CHLORIDE 112 mmol/L (98-107); CREATININE, SERUM 0.83 mg/dL (0.72-1.25); EST GLOMERULAR FILTRATION RATE > 60 ML/MIN (60-); GLUCOSE 117 mg/dL (74-118); POTASSIUM 3.2 mmol/L (3.5-5.1); SODIUM 152 mmol/L (136-145)
[2020-05-28] MEDS: PHENYTOIN SODIUM INJ 50 MG/ML 2 ML VIAL IV SCH ×3 (05:29→22:18)
[2020-05-28] MEDS: MIDAZOLAM HCL 5MG/ML 10ML VIAL 100 ML IV PRN (05:44)
[2020-05-28] MEDS ORDERED: LORAZEPAM INJ 2 MG/ML VIAL ONE (06:48)
[2020-05-28] MEDS ORDERED: LORAZEPAM INJ 2 MG/ML VIAL IV STA (06:58)
[2020-05-28] MEDS ORDERED: LORAZEPAM INJ 2 MG/ML VIAL IV ONE (07:00)
[2020-05-28 07:45] LABS: PHENYTOIN (DILANTIN) 2.72 ug/mL (10-20)
[2020-05-28] MEDS: ASPIRIN 81 MG CHEW TAB PO SCH (07:56)
[2020-05-28] MEDS: CITALOPRAM HYDROBROMIDE 20 MG TAB PO SCH (07:56)
[2020-05-28] MEDS: DOCUSATE SODIUM LIQD 100 MG/10 ML UDC NG SCH ×2 (07:56→16:00)
[2020-05-28] MEDS: FAMOTIDINE 20 MG/2 ML VIAL IV SCH ×2 (07:56→16:00)
[2020-05-28] MEDS: EYE LUBRICANT OPTH OINT 3.5GM TUBE OP SCH (07:56)
[2020-05-28] MEDS: ZINC SULFATE 220 MG CAP PO SCH (07:57)
[2020-05-28] MEDS: KCL 20 MEQ PACKET/ ORAL SOLN PO SCH (07:57)
[2020-05-28] MEDS: BALSAM PERU/CASTOR OIL 60 GM OINT...G. TP SCH ×2 (07:57→16:00)
[2020-05-28] MEDS: ASCORBIC ACID 500 MG TAB PO SCH ×2 (07:57→16:00)
[2020-05-28 08:40] LABS: MAGNESIUM 1.9 MG/DL (1.3-2.1); PHOSPHORUS 3.1 MG/DL (2.3-4.7)
[2020-05-28 08:49] LABS: CALCIUM IONIZED 1.3 mmol/L (1.09-1.30)
[2020-05-28 08:57] LABS: ABG HCO3 29 mmol/L (22-26); ABG PCO2 44 mmHg (35-45); ABG PH 7.42 (7.35-7.45); ABG PO2 76 mmHg (80-105); ABG TCO2 30
[2020-05-28] MEDS: FUROSEMIDE INJ 10 MG/ML 4 ML VIAL IV SCH (09:19)
[2020-05-28] MEDS ORDERED: FOSPHENYTOIN 500 MG in SODIUM CHLORIDE 0.9% 50ML 50 ML IV SCH (10:45)
[2020-05-28] MEDS ORDERED: ONDANSETRON HCL INJ 2MG/ML 2ML 2 MG/ML VIAL IV PRN (10:45)
[2020-05-28] MEDS ORDERED: LACTULOSE SYRUP 20 GM/30 ML UDC PO ONE (11:30)
[2020-05-28] MEDS: PROPOFOL IV EMULSION 10MG/ML 100 ML IV PRN ×3 (12:00→21:57)
[2020-05-28] MEDS: ENOXAPARIN SOD INJ 40 MG/0.4 ML SYR SC SCH (16:00)
[2020-05-28] MEDS ORDERED: HEPARIN SOD/SOD CHLORIDE 1,000 ML ONE (23:52)
[2020-05-29] VITALS (25 sets, daily range): BP systolic 139–203; BP diastolic 50–84
[2020-05-29] MEDS: PROPOFOL IV EMULSION 10MG/ML 100 ML IV PRN ×3 (02:13→15:00)
[2020-05-29 05:49] LABS: BASOPHILS # (AUTO) 0.1 (0.0-0.1); BASOPHILS % 0.6 % (0.0-1.0); EOSINOPHILS # (AUTO) 1.1 (0.0-0.4); EOSINOPHILS % 12.7 % (0.0-6.0); HEMATOCRIT 28.8 % (38.2-49.6); HEMOGLOBIN 8.8 g/dL (14.0-18.0); LYMPHOCYTES # (AUTO) 1.3 (1.0-3.2); LYMPHOCYTES % 15.3 % (18.0-39.1); MEAN CORPUSCULAR HEMOGLOBIN 30.7 pg (28-32); MEAN CORPUSCULAR HGB CONC 30.6 g/dL (31-35); MEAN CORPUSCULAR VOLUME 100.3 fL (81-99); MONOCYTES # (AUTO) 0.7 (0.2-0.8); MONOCYTES % 8.5 % (4.4-11.3); NEUTROPHILS # (AUTO) 5.2 (2.1-6.9); NEUTROPHILS % 62.4 % (38.7-80.0); PLATELET COUNT 304 x10e3/uL (140-360); RED BLOOD COUNT 2.87 x10e6/uL (4.3-5.7); RED CELL DISTRIBUTION WIDTH 13.6 % (11.7-14.4)
[2020-05-29] MEDS: PHENYTOIN SODIUM INJ 50 MG/ML 2 ML VIAL IV SCH ×3 (06:00→22:04)
[2020-05-29] MEDS: METOCLOPRAMIDE HCL 10 MG/2ML VIAL IV SCH ×4 (06:00→17:45)
[2020-05-29 06:14] LABS: ALANINE AMINOTRANSFERASE 22 IU/L (0-55); ALBUMIN 3.1 g/dL (3.5-5.0); ALBUMIN/GLOBULIN RATIO 0.7 (0.8-2.0); BLOOD UREA NITROGEN 28 mg/dL (7-26); BUN/CREATININE RATIO 31 (6-25); CALCIUM 9.7 mg/dL (8.4-10.2); CARBON DIOXIDE 28 mmol/L (22-29); CHLORIDE 115 mmol/L (98-107); EST GLOMERULAR FILTRATION RATE > 60 ML/MIN (60-); GLUCOSE 111 mg/dL (74-118); SODIUM 154 mmol/L (136-145)
[2020-05-29 06:49] LABS: ALKALINE PHOSPHATASE 99 IU/L (40-150)
[2020-05-29] MEDS ORDERED: CITRATE OF MAGNESIA 300ML BOTTLE PO ONE (08:30)
[2020-05-29] MEDS ORDERED: SODIUM CHLORIDE 0.45% 1,000 ML IV ONE (08:30)
[2020-05-29 08:50] LABS: ABG HCO3 27 mmol/L (22-26); ABG PCO2 40 mmHg (35-45); ABG PH 7.44 (7.35-7.45); ABG PO2 102 mmHg (80-105); ABG TCO2 29
[2020-05-29] MEDS: ASPIRIN 81 MG CHEW TAB PO SCH (09:41)
[2020-05-29] MEDS: ASCORBIC ACID 500 MG TAB PO SCH ×2 (09:41→16:29)
[2020-05-29] MEDS: EYE LUBRICANT OPTH OINT 3.5GM TUBE OP SCH (09:41)
[2020-05-29] MEDS: FAMOTIDINE 20 MG/2 ML VIAL IV SCH ×2 (09:41→16:29)
[2020-05-29] MEDS: DOCUSATE SODIUM LIQD 100 MG/10 ML UDC NG SCH ×2 (09:41→16:29)
[2020-05-29] MEDS: ZINC SULFATE 220 MG CAP PO SCH (09:41)
[2020-05-29] MEDS: BALSAM PERU/CASTOR OIL 60 GM OINT...G. TP SCH ×2 (09:42→16:30)
[2020-05-29] MEDS: KCL 20 MEQ PACKET/ ORAL SOLN PO SCH (10:05)
[2020-05-29] MEDS: CITALOPRAM HYDROBROMIDE 20 MG TAB PO SCH (10:05)
[2020-05-29] MEDS ORDERED: FENTANYL 2,000 MCG/250 ML BAG ONE (13:45)
[2020-05-29] MEDS ORDERED: PROPOFOL IV EMULSION 10 MG/ML 50 ML VIAL IV ONE (13:45)
[2020-05-29] MEDS ORDERED: MIDAZOLAM HCL 5MG/ML 10ML VIAL 100 ML BAG IV ONE (13:45)
[2020-05-29] MEDS: ENOXAPARIN SOD INJ 40 MG/0.4 ML SYR SC SCH (16:29)
[2020-05-29] MEDS ORDERED: POTASSIUM CHLORIDE 20MEQ/100ML 200 ML IV ONE (19:30)
[2020-05-29] MEDS ORDERED: DEXTROSE 5% 1,000 ML IV ONE (20:00)
[2020-05-30] VITALS (26 sets, daily range): BP systolic 124–196; BP diastolic 43–79
[2020-05-30] MEDS: METOCLOPRAMIDE HCL 10 MG/2ML VIAL IV SCH ×4 (00:27→17:36)
[2020-05-30] MEDS: PROPOFOL IV EMULSION 10MG/ML 100 ML IV PRN ×3 (02:00→14:51)
[2020-05-30 05:19] LABS: BASOPHILS # (AUTO) 0.1 (0.0-0.1); BASOPHILS % 0.7 % (0.0-1.0); EOSINOPHILS # (AUTO) 0.9 (0.0-0.4); EOSINOPHILS % 13.6 % (0.0-6.0); HEMOGLOBIN 7.8 g/dL (14.0-18.0); LYMPHOCYTES # (AUTO) 1.1 (1.0-3.2); LYMPHOCYTES % 17.1 % (18.0-39.1); MEAN CORPUSCULAR HEMOGLOBIN 31.3 pg (28-32); MEAN CORPUSCULAR HGB CONC 31.2 g/dL (31-35); MEAN CORPUSCULAR VOLUME 100.4 fL (81-99); MONOCYTES # (AUTO) 0.7 (0.2-0.8); MONOCYTES % 9.9 % (4.4-11.3); NEUTROPHILS # (AUTO) 3.9 (2.1-6.9); NEUTROPHILS % 58.4 % (38.7-80.0); PLATELET COUNT 258 x10e3/uL (140-360); RED BLOOD COUNT 2.49 x10e6/uL (4.3-5.7); RED CELL DISTRIBUTION WIDTH 13.6 % (11.7-14.4)
[2020-05-30 05:40] LABS: ALANINE AMINOTRANSFERASE 17 IU/L (0-55); ALBUMIN 2.7 g/dL (3.5-5.0); ALBUMIN/GLOBULIN RATIO 0.7 (0.8-2.0); ALKALINE PHOSPHATASE 83 IU/L (40-150); ANION GAP 11.2 mmol/L (8-16); BLOOD UREA NITROGEN 23 mg/dL (7-26); BUN/CREATININE RATIO 28 (6-25); CALCIUM 8.4 mg/dL (8.4-10.2); CARBON DIOXIDE 27 mmol/L (22-29); CHLORIDE 116 mmol/L (98-107); CREATININE, SERUM 0.81 mg/dL (0.72-1.25); EST GLOMERULAR FILTRATION RATE > 60 ML/MIN (60-); GLUCOSE 134 mg/dL (74-118); POTASSIUM 3.2 mmol/L (3.5-5.1); SODIUM 151 mmol/L (136-145)
[2020-05-30] MEDS: PHENYTOIN SODIUM INJ 50 MG/ML 2 ML VIAL IV SCH ×3 (06:06→21:31)
[2020-05-30] MEDS: FAMOTIDINE 20 MG/2 ML VIAL IV SCH ×2 (08:31→16:13)
[2020-05-30] MEDS: ASCORBIC ACID 500 MG TAB PO SCH ×2 (08:31→16:13)
[2020-05-30] MEDS: EYE LUBRICANT OPTH OINT 3.5GM TUBE OP SCH (08:31)
[2020-05-30] MEDS: ASPIRIN 81 MG CHEW TAB PO SCH (08:31)
[2020-05-30] MEDS: DOCUSATE SODIUM LIQD 100 MG/10 ML UDC NG SCH ×2 (08:31→16:13)
[2020-05-30] MEDS: CITALOPRAM HYDROBROMIDE 20 MG TAB PO SCH (08:31)
[2020-05-30] MEDS: BALSAM PERU/CASTOR OIL 60 GM OINT...G. TP SCH ×2 (08:31→16:13)
[2020-05-30] MEDS: ZINC SULFATE 220 MG CAP PO SCH (08:31)
[2020-05-30] MEDS: KCL 20 MEQ PACKET/ ORAL SOLN PO SCH (08:31)
[2020-05-30 08:33] LABS: ABG HCO3 28 mmol/L (22-26); ABG PCO2 43 mmHg (35-45); ABG PH 7.43 (7.35-7.45); ABG PO2 87 mmHg (80-105); ABG TCO2 30
[2020-05-30] MEDS: ALBUMIN 25% 25GM 100ML 100 ML IV SCH ×2 (12:42→19:15)
[2020-05-30] MEDS ORDERED: ALBUMIN 25% 25GM 100ML 0.25 GM/ML BTL IV SCH (14:00)
[2020-05-30] MEDS: ENOXAPARIN SOD INJ 40 MG/0.4 ML SYR SC SCH (16:13)
[2020-05-30 17:13] LABS: CLARITY,URINE SL CLOUDY (CLEAR); COLOR,URINE STRAW (YELLOW); KETONES,URINE NEGATIVE (NEGATIVE); LEUKOCYTE ESTERASE ,URINE NEGATIVE (NEGATIVE); NITRITE,URINE NEGATIVE (NEGATIVE); PROTEIN,URINE DIPSTICK 1+ (NEGATIVE); URINE UROBILINOGEN 0.2 mg/dL (0.2 - 1)
[2020-05-30 17:28] LABS: BACTERIA,URINE MODERATE /HPF; EPITHELIAL CELLS,URINE RARE /LPF; RBC,URINE 0-5 /HPF (0-5)
[2020-05-30] MEDS ORDERED: FUROSEMIDE INJ 10 MG/ML 4 ML VIAL IV SCH (21:00)
[2020-05-30] MEDS: FUROSEMIDE INJ 10 MG/ML 4 ML VIAL IV SCH (21:31)
[2020-05-31] VITALS (30 sets, daily range): BP systolic 119–198; BP diastolic 44–71
[2020-05-31] MEDS: METOCLOPRAMIDE HCL 10 MG/2ML VIAL IV SCH ×4 (00:19→17:05)
[2020-05-31] MEDS: ALBUMIN 25% 25GM 100ML 100 ML IV SCH (02:57)
[2020-05-31] MEDS: PHENYTOIN SODIUM INJ 50 MG/ML 2 ML VIAL IV SCH ×3 (05:41→21:16)
[2020-05-31 06:02] LABS: BASOPHILS % 0.5 % (0.0-1.0); EOSINOPHILS # (AUTO) 1.1 (0.0-0.4); EOSINOPHILS % 16.4 % (0.0-6.0); HEMATOCRIT 24.6 % (38.2-49.6); HEMOGLOBIN 7.7 g/dL (14.0-18.0); LYMPHOCYTES # (AUTO) 1.4 (1.0-3.2); LYMPHOCYTES % 20.8 % (18.0-39.1); MEAN CORPUSCULAR HEMOGLOBIN 30.9 pg (28-32); MEAN CORPUSCULAR HGB CONC 31.3 g/dL (31-35); MEAN CORPUSCULAR VOLUME 98.8 fL (81-99); MONOCYTES # (AUTO) 0.6 (0.2-0.8); MONOCYTES % 8.7 % (4.4-11.3); NEUTROPHILS # (AUTO) 3.5 (2.1-6.9); NEUTROPHILS % 53.3 % (38.7-80.0); PLATELET COUNT 229 x10e3/uL (140-360); RED BLOOD COUNT 2.49 x10e6/uL (4.3-5.7); RED CELL DISTRIBUTION WIDTH 13.6 % (11.7-14.4)
[2020-05-31 06:06] LABS: ALANINE AMINOTRANSFERASE 12 IU/L (0-55); ALBUMIN 3.7 g/dL (3.5-5.0); ALBUMIN/GLOBULIN RATIO 1.1 (0.8-2.0); ALKALINE PHOSPHATASE 85 IU/L (40-150); BLOOD UREA NITROGEN 21 mg/dL (7-26); BUN/CREATININE RATIO 24 (6-25); CALCIUM 9.2 mg/dL (8.4-10.2); CARBON DIOXIDE 28 mmol/L (22-29); CHLORIDE 112 mmol/L (98-107); CREATININE, SERUM 0.89 mg/dL (0.72-1.25); EST GLOMERULAR FILTRATION RATE > 60 ML/MIN (60-); GLUCOSE 123 mg/dL (74-118); SODIUM 149 mmol/L (136-145)
[2020-05-31] MEDS ORDERED: ALBUTEROL SULFATE HFA 8GM INHALATION AEROSOL INH PRN (08:45)
[2020-05-31] MEDS ORDERED: METHYLPREDNISOLONE SOD SUCC 125 MG/2ML VIAL IV ONE (08:45)
[2020-05-31] MEDS ORDERED: POTASSIUM CHLORIDE 20MEQ/100ML 200 ML IV ONE (09:30)
[2020-05-31] MEDS: KCL 20 MEQ PACKET/ ORAL SOLN PO SCH (09:35)
[2020-05-31] MEDS: ZINC SULFATE 220 MG CAP PO SCH (09:35)
[2020-05-31] MEDS: DOCUSATE SODIUM LIQD 100 MG/10 ML UDC NG SCH ×2 (09:35→16:41)
[2020-05-31] MEDS: BALSAM PERU/CASTOR OIL 60 GM OINT...G. TP SCH ×2 (09:35→17:05)
[2020-05-31] MEDS: ASCORBIC ACID 500 MG TAB PO SCH ×2 (09:35→16:41)
[2020-05-31] MEDS: CITALOPRAM HYDROBROMIDE 20 MG TAB PO SCH (09:35)
[2020-05-31] MEDS: EYE LUBRICANT OPTH OINT 3.5GM TUBE OP SCH (09:35)
[2020-05-31] MEDS: FAMOTIDINE 20 MG/2 ML VIAL IV SCH ×2 (09:35→16:41)
[2020-05-31] MEDS: FUROSEMIDE INJ 10 MG/ML 4 ML VIAL IV SCH ×2 (09:35→16:41)
[2020-05-31] MEDS: ASPIRIN 81 MG CHEW TAB PO SCH (09:35)
[2020-05-31] MEDS ORDERED: LOVENOX40 MG/0.4 SC (14:35)
[2020-05-31] MEDS ORDERED: POTASSIUM CHLO20 MEQ PO (14:35)
[2020-05-31] MEDS ORDERED: VENELEX OINTMEN60 GM TP (14:35)
[2020-05-31] MEDS ORDERED: ACETAMINOPHEN325 M1 PO (14:35)
[2020-05-31] MEDS ORDERED: VENTOLIN HFA18 GM INH (14:35)
[2020-05-31] MEDS ORDERED: ASCORBIC ACID500 MG PO (14:35)
[2020-05-31] MEDS ORDERED: PHENYTOIN IV (14:35)
[2020-05-31] MEDS ORDERED: ATROPINE S0.1 MG/1 M IV (14:35)
[2020-05-31] MEDS ORDERED: [UNRECOGNIZED DRUG - OTHER] IV (14:35)
[2020-05-31] MEDS ORDERED: FAMOTIDINE20 MG/2 ML IV (14:35)
[2020-05-31] MEDS ORDERED: ONDANSETRON4 MG/2 M1 IV (14:35)
[2020-05-31] MEDS ORDERED: PROPOFOL10 MG/1 ML IV (14:35)
[2020-05-31] MEDS ORDERED: HYDRALAZIN20 MG/1 ML IV (14:35)
[2020-05-31] MEDS ORDERED: METOCLOPRAMID5 MG/ML IV (14:35)
[2020-05-31] MEDS ORDERED: MIRALAX17 GM PO (14:35)
[2020-05-31] MEDS ORDERED: Artificial Tears Op Oint OP (14:35)
[2020-05-31] MEDS ORDERED: MANNITOL50 ML IV (14:35)
[2020-05-31] MEDS ORDERED: FUROSEMIDE10 MG/1 M1 IV (14:35)
[2020-05-31] MEDS ORDERED: ZINC SULFATE220 M1 PO (14:35)
[2020-05-31] MEDS ORDERED: FOSPHENYTOIN IV (14:35)
[2020-05-31] MEDS ORDERED: COLACE100 MG/10 NG (14:35)
[2020-05-31] MEDS ORDERED: PROTONIX IV40 MG IV (14:35)
[2020-05-31] MEDS ORDERED: CELEXA20 MG PO (14:37)
[2020-05-31 17:26] LABS: ABG PCO2 38 mmHg (35-45); ABG PH 7.53 (7.35-7.45); ABG PO2 66 mmHg (80-105)
[2020-05-31 17:27] LABS: ABG HCO3 31 mmol/L (22-26); ABG TCO2 32
[2020-05-31] MEDS: HYDRALAZINE HCL 20 MG/ML VIAL IV PRN (21:16)
[2020-05-31] MEDS: ACETAMINOPHEN 325 MG TAB PO PRN (21:16)
[2020-06-01] VITALS (24 sets, daily range): BP systolic 109–174; BP diastolic 41–68
[2020-06-01] MEDS: METOCLOPRAMIDE HCL 10 MG/2ML VIAL IV SCH ×4 (00:10→17:38)
[2020-06-01] MEDS: PROPOFOL IV EMULSION 10MG/ML 100 ML IV PRN (04:20)
[2020-06-01 05:53] LABS: BASOPHILS # (AUTO) 0.1 (0.0-0.1); BASOPHILS % 0.5 % (0.0-1.0); EOSINOPHILS # (AUTO) 0.9 (0.0-0.4); EOSINOPHILS % 9.2 % (0.0-6.0); HEMATOCRIT 28.7 % (38.2-49.6); HEMOGLOBIN 9.1 g/dL (14.0-18.0); LYMPHOCYTES # (AUTO) 1.3 (1.0-3.2); LYMPHOCYTES % 12.3 % (18.0-39.1); MEAN CORPUSCULAR HEMOGLOBIN 31.1 pg (28-32); MEAN CORPUSCULAR HGB CONC 31.7 g/dL (31-35); MONOCYTES # (AUTO) 0.8 (0.2-0.8); MONOCYTES % 7.5 % (4.4-11.3); NEUTROPHILS # (AUTO) 7.1 (2.1-6.9); PLATELET COUNT 287 x10e3/uL (140-360); RED BLOOD COUNT 2.93 x10e6/uL (4.3-5.7); RED CELL DISTRIBUTION WIDTH 13.5 % (11.7-14.4)
[2020-06-01] MEDS: PHENYTOIN SODIUM INJ 50 MG/ML 2 ML VIAL IV SCH ×2 (06:04→13:07)
[2020-06-01 06:27] LABS: ALANINE AMINOTRANSFERASE 13 IU/L (0-55); ALBUMIN 3.3 g/dL (3.5-5.0); ALBUMIN/GLOBULIN RATIO 0.9 (0.8-2.0); ALKALINE PHOSPHATASE 90 IU/L (40-150); ANION GAP 12.9 mmol/L (8-16); BLOOD UREA NITROGEN 23 mg/dL (7-26); BUN/CREATININE RATIO 27 (6-25); CALCIUM 8.8 mg/dL (8.4-10.2); CARBON DIOXIDE 28 mmol/L (22-29); CHLORIDE 110 mmol/L (98-107); CREATININE, SERUM 0.84 mg/dL (0.72-1.25); EST GLOMERULAR FILTRATION RATE > 60 ML/MIN (60-); GLUCOSE 127 mg/dL (74-118); SODIUM 148 mmol/L (136-145)
[2020-06-01 06:30] LABS: POTASSIUM 2.9 mmol/L (3.5-5.1)
[2020-06-01 06:52] LABS: MAGNESIUM 1.7 MG/DL (1.3-2.1); PHOSPHORUS 3.9 MG/DL (2.3-4.7)
[2020-06-01] MEDS ORDERED: AMLODIPINE BESYLATE 5 MG TAB PO SCH (09:00)
[2020-06-01] MEDS ORDERED: POTASSIUM CHLORIDE 20MEQ/100ML 400 ML IV ONE (09:15)
[2020-06-01] MEDS ORDERED: MAGNESIUM SULFATE 2GM/50ML 50 ML IV ONE (09:15)
[2020-06-01] MEDS: EYE LUBRICANT OPTH OINT 3.5GM TUBE OP SCH (09:23)
[2020-06-01] MEDS: FUROSEMIDE INJ 10 MG/ML 4 ML VIAL IV SCH ×2 (09:23→16:40)
[2020-06-01] MEDS: CITALOPRAM HYDROBROMIDE 20 MG TAB PO SCH (09:23)
[2020-06-01] MEDS: KCL 20 MEQ PACKET/ ORAL SOLN PO SCH (09:23)
[2020-06-01] MEDS: ASCORBIC ACID 500 MG TAB PO SCH ×2 (09:23→16:36)
[2020-06-01] MEDS: BALSAM PERU/CASTOR OIL 60 GM OINT...G. TP SCH ×2 (09:23→16:36)
[2020-06-01] MEDS: ZINC SULFATE 220 MG CAP PO SCH (09:23)
[2020-06-01] MEDS: DOCUSATE SODIUM LIQD 100 MG/10 ML UDC NG SCH ×2 (09:23→16:36)
[2020-06-01] MEDS: ASPIRIN 81 MG CHEW TAB PO SCH (09:23)
[2020-06-01] MEDS: FAMOTIDINE 20 MG/2 ML VIAL IV SCH ×2 (09:23→16:36)
[2020-06-01 11:33] LABS: ABG HCO3 31 mmol/L (22-26); ABG PCO2 37 mmHg (35-45); ABG PH 7.52 (7.35-7.45); ABG PO2 82 mmHg (80-105); ABG TCO2 32
[2020-06-01] MEDS ORDERED: NORVASC5 MG PO (14:07)
== END 2020-06-01 21:25 | DRG 4 ==
LOC: ER 14:35 → ERHOLD 15:37 → IMCU 16:56 → ICU 05-09 15:55 → COVIDICU 05-26 20:26
PROVIDERS: ADMIT Internal Medicine; ATTEND Internal Medicine
PROC: 8E0ZXY6 Isolation (ICD-10-PCS; 2020-05-07)
PROC: 5A1955Z Respiratory Ventilation, Greater than 96 Consecutive Hours (ICD-10-PCS; principal; 2020-05-09)
PROC: 0BH18EZ Insertion of Endotracheal Airway into Trachea, Via Natural or Artificial Opening Endoscopic (ICD-10-PCS; 2020-05-09)
PROC: 5A1955Z Respiratory Ventilation, Greater than 96 Consecutive Hours (ICD-10-PCS; 2020-05-09)
PROC: XW043E5 Introduction of Remdesivir Anti-infective into Central Vein, Percutaneous Approach, New Technology Group 5 (ICD-10-PCS; 2020-05-09)
PROC: 03HY32Z Insertion of Monitoring Device into Upper Artery, Percutaneous Approach (ICD-10-PCS; 2020-05-10)
PROC: 02HV33Z Insertion of Infusion Device into Superior Vena Cava, Percutaneous Approach (ICD-10-PCS; 2020-05-11)
PROC: 5A1D70Z Performance of Urinary Filtration, Intermittent, Less than 6 Hours Per Day (ICD-10-PCS; 2020-05-11)
PROC: 30243N1 Transfusion of Nonautologous Red Blood Cells into Central Vein, Percutaneous Approach (ICD-10-PCS; 2020-05-16)
PROC: 0B113F4 Bypass Trachea to Cutaneous with Tracheostomy Device, Percutaneous Approach (ICD-10-PCS; 2020-05-23)
DX: A41.89 Other specified sepsis (principal); U07.1 COVID-19; J12.82 Pneumonia due to coronavirus disease 2019; I50.31 Acute diastolic (congestive) heart failure; R65.21 Severe sepsis with septic shock; N17.0 Acute kidney failure with tubular necrosis; J96.21 Acute and chronic respiratory failure with hypoxia; N17.9 Acute kidney failure, unspecified; F84.0 Autistic disorder; E87.0 Hyperosmolality and hypernatremia; E44.0 Moderate protein-calorie malnutrition; R65.20 Severe sepsis without septic shock; G40.909 Epilepsy, unspecified, not intractable, without status epilepticus; I11.0 Hypertensive heart disease with heart failure; R00.1 Bradycardia, unspecified; E87.6 Hypokalemia; D50.0 Iron deficiency anemia secondary to blood loss (chronic); E83.51 Hypocalcemia; F41.9 Anxiety disorder, unspecified; F32.9 Major depressive disorder, single episode, unspecified; Z74.09 Other reduced mobility; F79 Unspecified intellectual disabilities; I95.9 Hypotension, unspecified; E11.65 Type 2 diabetes mellitus with hyperglycemia; Z68.28 Body mass index [BMI] 28.0-28.9, adult; K59.00 Constipation, unspecified; K21.9 Gastro-esophageal reflux disease without esophagitis
CPT/HCPCS: 36415; 36569; 36600; 71045; 74018; 76705; 76937; 80048; 80053; 80061; 80185; 81001; 82150; 82248; 82805; 82948; 83036; 83605; 83690; 83735; 84100; 84443; 84484; 85025; 85379; 85610; 85730; 86704; 86705; 86706; 86850; 86900; 86920; 87040; 87070; 87205; 87340; 87400; 90962; 93005; 93306; 94002; 94003; 99251; 99284; J0330; J0360; J0456; J0696; J1100; J1165; J1644; J1650; J1940; J2001; J2060; J2150; J2250; J2405; J2765; J2930; J3370; J3475; J3480; J7030; J7040; J7050; J7070; J7121; P9016; P9047; U0002